=== PATIENT | female | born 1965 | race Caucasian/White ===

== ENCOUNTER → 2017-03-12 | Outpatient (CLI) | payer BC ==
[~2017-03-12] MED LIST: LORA10CA2 PO; MEDR10TA9 PO; NYSTCRE32 TOP; OMEP20CA9 PO; ZOLP5TAB PO
--- NOTE | 2017-03-13 08:09 | MAMMOGRAPHY REPORT ---
BILATERAL DIGITAL SCREENING MAMMOGRAM TOMOSYNTHESIS WITH CAD: 03/12/2017 CLINICAL HISTORY: Routine screening. Patient has no complaints. TECHNIQUE: Breast tomosynthesis in addition to standard 2D mammography was performed. Current study was also evaluated with a Computer Aided Detection (CAD) system. COMPARISON: Comparison is made to exams dated: 01/08/2016 mammogram, 01/03/2015 mammogram, 05/18/2013 m ammogram, 05/05/2012 mammogram, 04/30/2011 mammogram - [facility], and 12/15/2007. BREAST COMPOSITION: There are scattered areas of fibroglandular density in both breasts. FINDINGS: No suspicious masses, calcifications, or areas of architectural distortion are noted in ei ther breast. There has been no significant interval change compared to prior exams. IMPRESSION: ACR BI-RADS CATEGORY 1: NEGATIVE There is no mammographic evidence of malignancy. A 1 year screening mammogram is recommended. The pa tient will receive written notification of the results. Approximately 10% of breast cancers are not detected with mammography. A negative mammographic report should not delay biopsy if a clinically suggestive mass is present. Dominique Ch M.D. /:03/12/2017 15:55:46 Tapper Shank: Krista VAZQUEZ(Ovi)(M), [facility] letter sent: Normal 1/2 BI-RADS Code: ACR BI-RADS Category 1: Negative
== END | disposition home or self-care (01) ==
LOC: C.MAMM 13:09
PROVIDERS: ATTEND Obstetrics & Gynecology
DX: Z12.31 Encounter for screening mammogram for malignant neoplasm of breast (principal)

== ENCOUNTER → 2017-04-10 | Outpatient (CLI) | payer BC | END | disposition home or self-care (01) | LOC: C.PAPS 11:01 | PROVIDERS: ATTEND Obstetrics & Gynecology | DX: Z01.419 Encounter for gynecological examination (general) (routine) without abnormal findings (principal) ==

== ENCOUNTER → 2017-11-16 | Outpatient (CLI) | payer OTHER ==
--- NOTE | 2017-11-16 12:23 | DIAGNOSTIC IMAGING REPORT ---
LEFT HAND 3 VIEWS, LEFT WRIST 4 VIEWS HISTORY: Left hand pain. Left wrist pain. COMPARISON: None. FINDINGS: There is no fracture or dislocation. Soft tissues are unremarkable. No radiopaque foreign bodies. Mild cartilage space narrowing within the first carpometacarpal joint, MCP, and PIP joints. Exoj-is-[id number]: Within the DIP joints. Findings are consistent with osteoarthritis. Bone mineralization is intact. No erosions identified. IMPRESSION: 1. Mild to moderate osteoarthritis within the left hand as described above. 2. No significant abnormality within the left wrist. Electronically signed by: Edmund Oliva M.D. 11/16/2017 12:22 PM Dictated Date/Time: 11/16/2017 12:19 PM
--- NOTE | 2017-11-16 12:24 | DIAGNOSTIC IMAGING REPORT ---
HAND MIN 3 VIEWS ROUTINE CLINICAL HISTORY: Left wrist pain COMPARISON: None. DISCUSSION: No fractures or dislocations are visualized. There is no erosive disease. IMPRESSION: 1. No fractures identified. 2. No evidence of erosive disease. Electronically signed by: Jatin Guerra M.D. 11/16/2017 12:23 PM Dictated Date/Time: 11/16/2017 12:22 PM
== END | disposition home or self-care (01) ==
LOC: C.RAD1850 11:34
PROVIDERS: ATTEND Internal Medicine
DX: M25.532 Pain in left wrist (principal)

== ENCOUNTER → 2017-12-23 | Outpatient (CLI) | payer OTHER | END | disposition home or self-care (01) | LOC: C.RDSM 16:42 | PROVIDERS: ATTEND Podiatrist | DX: M72.2 Plantar fascial fibromatosis (principal); Q66.7 Congenital pes cavus; M76.60 Achilles tendinitis, unspecified leg; M20.41 Other hammer toe(s) (acquired), right foot; M19.90 Unspecified osteoarthritis, unspecified site; M79.671 Pain in right foot; M79.672 Pain in left foot ==

== ENCOUNTER → 2018-03-15 | Outpatient (CLI) | payer OTHER ==
--- NOTE | 2018-03-16 15:23 | MAMMOGRAPHY REPORT ---
BILATERAL DIGITAL SCREENING MAMMOGRAM TOMOSYNTHESIS WITH CAD: 03/15/2018 CLINICAL HISTORY: Routine screening. Patient has no complaints. TECHNIQUE: The study was acquired using full field digital technology and interpreted from soft copy. Breast tomosynthesis in addition to standard 2D mammography was performed. Current study was also ev aluated with a Computer Aided Detection (CAD) system. COMPARISON: Comparison is made to exams dated: 03/12/2017 mammogram, 01/08/2016 mammogram, 01/03/2015 m ammogram, 05/18/2013 mammogram, 05/05/2012 mammogram, and 04/30/2011 mammogram - [facility]. BREAST COMPOSITION: There are scattered areas of fibroglandular density in both breasts. FINDINGS: Status post bilateral reduction mammoplasty, with stable asymmetries in the inferior aspect of each breast. Scattered benign-appearing punctate microcalcifications. No suspicious mass, valeria ectural distortion or cluster of microcalcifications is seen. IMPRESSION: ACR BI-RADS CATEGORY 1: NEGATIVE There is no mammographic evidence of malignancy. A 1 year screening mammogram is recommended.( 019) The patient will receive written notification of the results. Some breast cancers are not detected with mammography. A negative mammographic report should not melyssa y biopsy if a clinically suggestive mass is present. Rosemary Bai M.D. ay/:03/15/2018 16:43:40 Academic Affairs Coordinator: Britany Walsh, [facility] letter sent: Normal 1/2 BI-RADS Code: ACR BI-RADS Category 1: Negative
== END | disposition home or self-care (01) ==
LOC: C.MAMM 13:22
PROVIDERS: ATTEND Obstetrics & Gynecology
DX: Z12.31 Encounter for screening mammogram for malignant neoplasm of breast (principal)

== ENCOUNTER 2024-09-24 22:59 | Inpatient (IN) ==
--- OUTSIDE RECORDS SUMMARY | 2024-09-24 23:04 | External Medical Summary | Continuity of Care Document ---
Author Name Unknown Organization [id number] Address [address] [place] [phone] Care Team Providers Care Manufacturing Sales Representative Name Role Phone Lukasz Morrow Primary Care Physician [phone] Encounter [facility] [id number] Date(s): 08/02/24 - 08/02/[address] [facility] [address] [place] [id number] [facility] [address] [place] [id number] Encounter Diagnosis Hallux rigidus, bilateral(Discharge Diagnosis) - 08/02/24 Hallux rigidus, right foot(Discharge Diagnosis) - 08/02/24 Pain in both feet(Discharge Diagnosis) - 08/02/24 Discharge Disposition: Home or Self Care Attending Physician: KULWANT Rome Christina L Allergies, Adverse Reactions, Alerts Substance Criticality Severity Reaction Reaction Severity Status Pet dander Itching Active Latex Rash Rash Active Assessment and Plan Extracted from: Title:Follow Up Visit Author:KULWANT Rome, Nestor Hernandez Date:08/02/24 1.Hallux rigidus, bilateral I discussed with patient should she need an injection in the future she may contact our office otherwise she should continue supportive shoe gearshe notes that [facility] [place] [facility] [place] multiple pairs of shoes that fit appropriatelyshe may follow-up with me on an as-needed basis. Additionally she had a long discussion with me concerning her ankle I did redirect her questions back to hersurgeon as I feel they would be more appropriately answered there but I did inform her again that she is able toreturn to [place] and have an ultrasound-guided ankle injection by sports medicine. Recommend follow-up as needed I spent 5 minute planning including prepping note and chart review. I spent 12 minute [id number] interaction with patient addressing issuesdiscussed in visit today. I spent 8 minute time in postop visitplanning including note finishing in depart process. Total time spent on patient visit 25 minutes. 2.Hallux rigidus, right foot 3.Pain in both feet Medications albuterol CFC free 90 mcg/inh MDI Start: 09/25/21 3:33:00 PM EST, 1 puff, inhaled, qid, PRN: as needed for wheezing Start Date: 09/25/21 Status: Ordered biotin Start: 07/23/23 8:57:00 AM EST, 10,000 mcg = Start Date: 07/23/23 Status: Ordered Breo Ellipta 100 mcg-25 mcg/inh inhalation powder Start: 07/06/18 9:38:00 AM EST, 1 puff, inhaled, Daily Start Date: 07/06/18 Status: Ordered Combivent Respimat CFC free 20 mcg-100 mcg/inh inhalation aerosol Start: 07/06/18 9:39:00 AM EST, 1 puff, inhaled, qid Start Date: 07/06/18 Status: Ordered D3-50 (50,000 intl units) oral capsule TAKE 1 CAPUSLE ONCE A WEEK FOR 12 WEEKS Start Date: 09/25/21 Status: Ordered estradiol 0.1 mg/g vaginal cream APPLY 1 GRAM VAGINALLY 2 TIMES A WEEK Start Date: 12/12/22 Status: Ordered gabapentin 300 mg oral capsule Start: 01/09/23 12:27:00 PM EDT, 1 cap, PO, tid, Disp# 90 cap, Refills: 3, Pharmacy: [facility] Start Date: 01/09/23 Status: Ordered hydroquinone 4% topical cream Start: 01/29/23 9:25:00 AM EDT, 1 appl, topical, Daily, Disp# 28.4 g, To dark areas on abdomen nightly for up to 2 months Start Date: 01/29/23 Status: Ordered Keflex 500 mg oral capsule Start: 11/10/23 12:29:00 PM EDT, 1 cap, PO, tid, Disp# 21 cap, Pharmacy: [facility] Start Date: 11/10/23 Stop Date: 11/17/23 Status: Ordered Lovenox 40 mg/0.4 mL injectable solution Start: 11/10/23 12:28:00 PM EDT, 0.4 mL, subQ, Daily, Disp# 8.4 mL, Pharmacy: [facility] Start Date: 11/10/23 Stop Date: 12/01/23 Status: Ordered Multi Vitamin+ Start: 07/23/23 8:57:00 AM EST Start Date: 07/23/23 Status: Ordered oxyCODONE 5 mg oral tablet Start: 11/10/23 12:28:00 PM EDT, 1 tab, PO, q6h, Disp# 21 tab, Refills: 0, PRN: as needed for pain, Pharmacy: [facility] Start Date: 11/10/23 Status: Ordered Spiriva Respimat 1.25 mcg/inh inhalation aerosol INHALE 2 PUFFS BY MOUTH ONCE DAILY Start Date: 12/12/22 Status: Ordered Voltaren 1% topical gel Start: 05/18/19 4:31:00 PM EDT, 2 g =, topical, qid, Disp# 100 g, Refills: 1, PRN: Pain, Pharmacy: [facility] Start Date: 05/18/19 Status: Ordered Mental Status 08/02/24 Barriers to Learning one year Vision imp airment, Other: glasses Mandatory Health Literacy Documentation Yes Health Literacy Communication Barriers N ever Primary Language B[place] Problem List Condition Confirmation Course Effective Dates Status Health Status Informant Androgenetic alopecia Confirmed Active Arthritis of carpometacarpal (CMC) joint of left thumb Confirmed Active Alopecia Confirmed Active Nevus of upper arm Confirmed Active Biceps tendinosis of right shoulder Confirmed Active Cubital tunnel syndrome, bilateral Confirmed Active Biceps tendinopathy Confirmed Active Eczema Confirmed Active Folliculitis Confirmed Active Orthopedic aftercare Confirmed Active Right foot pain Confirmed Active Pain in both feet Confirmed Active Left hand pain Confirmed Active Pain, hip Confirmed Active Asthma Confirmed Active Hypertrophic scar Confirmed Active Inflamed seborrheic keratosis Confirmed Active Left knee pain Confirmed Active Right knee pain Confirmed Active Lateral epicondylitis Confirmed Active Lower limb length difference Confirmed Active Nevus Confirmed Active Milia Confirmed Active Postinflammatory hyperpigmentation Confirmed Active Seborrheic keratoses Confirmed Active Right shoulder pain Confirmed Active Left shoulder pain Confirmed Active Skin lesion Confirmed Active Right foot sprain Confirmed Active Posterior tibial tendinitis Confirmed Active Hallux rigidus, right foot Confirmed Active Hallux rigidus, bilateral Confirmed Active Trochanteric bursitis of right hip Confirmed Active Diagnosis Diagnosis Type Effective Dates Health Status inical Service Informant Pain in both feet Discharge Diagnosis 08/02/24 Non-Specified Hallux rigidus, bilateral Discharge Diagnosis 08/02/24 Non-Specified Hallux rigidus, right foot Discharge Diagnosis 08/02/24 Non-Specified Procedures Procedure Date Related Diagnosis Body Site Status Surgery 1 07/2022 Completed Gastric bypass 02/2022 Completed Shave biopsy and cauterization of skin 07/30/17 Completed Breast reduction 2012 Complete d 1right ankle fracture repair Social History Social History Type Response Smoking Status Never smoked cigaret [place] Sex Female Sex Representation Female (finding) Ortho Outpt Note * KULWANT Rome, Beverly Hernandez: PERFORM Event Display: Ortho Outpt Note Authored Date: [id number] Chief Complaint right foot injection follow-up, pt states it worked very well Primary Care Provider MD Morrow Jeffrey W Subjective Patient is a very pleasant 58-year-old femalelast seen in April of this yearshe has a history of bilateral foot pain worse on right versus left footand a history of hallux rigidus. -Patient April visit x-rays were obtained we discussed her diagnosis of hallux rigidusI recommended and provided a right foot first MPJ injectionI recommended topical Voltaren Harrison recommended she use her custom orthotics with her Lopez's extension she follows up today. -With respect to the right foot hallux rigidus patient has done extremely wellshe has no further tenderness in the right foot -She had several questions regarding her right ankle surgeryshe wanted to know if she could have an injection I did redirect her [facility] in her care I do feelthat she shouldhave an appointment if she has any further questions with regards to this issueI did inform her that if she does ever require an ultrasound-guided injection for her anklewe certainly do provide them by her sports medicine doctors locally in [place] if recommended by her surgeon Review of Systems Joint swelling and arthritis Objective Physical Exam Problem focused bilateral feet: Dorsalis pedis pulse palpable 2 out of 4, posterior tibial pulse palpable 2 out of 4, capillary refill timeless than 3 seconds, skin turgor is good to all digitsof both feet pedal hair is present. Gross sensation intact all digits ofboth feet. Right foot grade 2 hallux rigidus with dorsal exostosis withouterythema no swellingpain improved from injectionstill limitation of dorsiflexion notable but without pain. Left foot grade 1 hallux rigiduswithout discomfort. X-ray dictation 3 views bilateral feet:Taken at May 03 visit Assessment/Plan 1.Hallux rigidus, bilateral I discussed with patient should she need an injection in the future she may contact our office otherwise she should continue supportive shoe gearshe notes that [place] [employer] [place] multiple pairs of shoes that fit appropriatelyshe may follow-up with me on an as-needed basis. Additionally she had a long discussion with me concerning her ankle I did redirect her questions back to hersurgeon as I feel they would be more appropriately answered there but I did inform her again that she is able toreturn to [place] and have an ultrasound-guided ankle injection by [facility]. Recommend follow-up as needed I spent 5 minute planning including prepping note and chart review. I spent 12 [id number] interaction with patient addressing issuesdiscussed in visit today. I spent 8 minute time in postop visitplanning including note finishing in depart process. Total time spent on patient visit 25 minutes. 2.Hallux rigidus, right foot 3.Pain in both feet Electronic Signature on File Electronically Reviewed/Signed by: Beverly Rome DPM Author Signature Dt/Tm:08/02/2024 08:50 AM Division of Sports Medicine CLR Patient Care team information Care Team Personnel Name: MD Morrow Jeffrey W Position: Referring DIRECT Member Role: Primary Care Provider Address: [facility] [place] [address] [place] Care Team Related Persons Name: AARON SANTOS
--- OUTSIDE RECORDS SUMMARY | 2024-09-24 23:04 | External Medical Summary | Continuity of Care Document ---
Author Name Unknown Organization [facility] [address] [facility] [address] [id number] Care Team Providers Care Heavy Truck Driver Name Role Phone Lukasz Morrow Primary Care Physician [phone] [id number] Date(s): 08/08/24 - 08/08/24 [facility] [address] [id number] Encounter Diagnosis Androgenetic alopecia(Discharge Diagnosis) - 08/07/24 Milia(Discharge Diagnosis) - 08/08/24 Discharge Disposition: Home or Self Care Attending Physician: DIVYA Palomino Holly C Referring Physician: DIVYA Palomino Holly C Allergies, Adverse Reactions, Alerts Substance Criticality Severity Reaction Reaction Severity Status Pet dander Itching Active Latex Rash Rash Active Assessment and Plan Extracted from: Title:Dermatology Office Visit Note Author:DIVYA Palomino Holly C Date:08/08/24 1.Androgenetic alopecia Chronic continue to get worse. Offered prescription Propecia, she declines, she does not want to do anyoral medication. Advised [id number] Rogaine foam,she statesshe will do it, but it is difficult to do it every dayso notsure how compliant she will be. She asks if she is a candidate for hair transplant, I discussed I am not sure she would have to discuss thatwith someone who does the transplants. She asked about the texture of her hair, I advised to see a beauticianor hairdresser for that. She states understanding. She has a lot of stress right nowas she has hadankle surgery11/10/2023,therefore I did discuss some of this could be telogen effluvium. She had gastric bypass 2 years ago, I asked aboutlabs she states her PCPjust did labs includingthyroid, CBC and they were normal through [facility]. She gets B12 injectionsas directed every few months. She takes vitamin Dsupplements every day. I looked for labs in chart, none found. 2.Milia Chronic no change Provided reassurance aboutthe benign nature of this lesion. No indication for treatment today. declines treatment at this time as cosmetic fee would be whiteside pay charge. Advised patient to call with any problems, questions, or concerns. States understanding. Patient was seen independently,Dr Canoavailable for immediate collaboration as needed during this visit. Will follow up in as needed. Medications albuterol CFC free 90 mcg/inh MDI [...] tid, Disp# 90 cap, Refills: 3, Pharmacy: [facility] [id number] [facility] Start Date: 01/09/23 Status: Ordered hydroquinone 4% topical cream Start: 01/29/23 9:25:00 AM EDT, 1 appl, topical, Daily, Disp# 28.4 g, To dark areas on abdomen nightly for up to 2 months Start Date: 01/29/23 Status: Ordered Keflex 500 mg oral capsule Start: 11/10/23 12:29:00 PM EDT, 1 cap, PO, tid, Disp# 21 cap, Pharmacy: [facility] [id number] [facility] Start Date: 11/10/23 Stop Date: 11/17/23 Status: Ordered Lovenox 40 mg/0.4 mL injectable solution Start: 11/10/23 12:28:00 PM EDT, 0.4 mL, subQ, Daily, Disp# 8.4 mL, Pharmacy: [facility] [id number] [facility] Start Date: 11/10/23 Stop Date: 12/01/23 Status: Ordered Multi Vitamin+ Start: 07/23/23 8:57:00 AM EST Start Date: 07/23/23 Status: Ordered oxyCODONE 5 mg oral tablet Start: 11/10/23 12:28:00 PM EDT, 1 tab, PO, q6h, Disp# 21 tab, Refills: 0, PRN: as needed for pain, Pharmacy: [facility] [id number] [facility] Start Date: 11/10/23 Status: Ordered Spiriva Respimat 1.25 mcg/inh inhalation aerosol INHALE 2 PUFFS BY MOUTH ONCE DAILY Start Date: 12/12/22 Status: Ordered Voltaren 1% topical gel Start: 05/18/19 4:31:00 PM EDT, 2 g =, topical, qid, Disp# 100 g, Refills: 1, PRN: Pain, Pharmacy: [facility] [id number] [facility] Start Date: 05/18/19 Status: Ordered Mental Status 08/08/24 Barriers to Learning one year Vision imp airment, Other: glasses Mandatory Health Literacy Documentation Yes Health Literacy Communication Barriers N ever Primary Language Azeri Problem List Condition Confirmation Course Effective Dates [...] Diagnosis Diagnosis Type Effective Dates Health Status Clinical Service Informant Androgenetic alopecia Discharge Diagnosis 08/07/24 Non-Specified Milia Discharge Diagnosis 08/08/24 Non-Specified Procedures Procedure Date Related Diagnosis Body Site Status Surgery 1 11/2023 Completed Surgery 2 07/2022 Completed Gastric bypass 02/2022 Completed Shave biopsy and cauterization of skin 07/30/17 Completed Breast reduction 2012 Complete d 1hardware 2right ankle fracture repair Social History Social History Type Response Smoking Status Never smoked cigaret [place] Sex Female Sex Representation Female (finding) Dermatology Outpatient Note * DIVYA Palomino, Flor Sigala: PERFORM Event Display: Dermatology Outpt Note Authored Date: [id number] Chief Complaint discuss hair loss History of Present Illness Patient is new to me. 58 YearsoldFemalepatient here for acute visit. Patient reports area of concern today: -hair loss, worse for years, but even worse since her gastric bypass 2 years ago.She asks what all she can do, she puts masks on her hair and could not leave in conditioner. She has tried Nutrafoland Viviscaland Nioxinand in the past. -white bump mid forehead. Denies history of skin cancer. No other skin areas of concern. Otherwise healthy. Saw Dr Thrasher 01/29/[address] Thrasher 01/30/2020 history of androgenetic alopecia. We had tried spironolactone but after taking the medication for1 to 2 days she noticed some side effects and "not feeling well". She saw her primary doctor at the time and stopped the medication and felt fine. She has continued to use the Rogaine foam 5%. She feels that her hair loss is stable and she is not continuing to lose hairalthough she has not grown a lot. Saw Dr Thrasher07/06/2018 history of eczema on her hands. She used Elocon last year to good effect. 1.Androgenetic alopecia in scalp. The patient has tried Nioxin and Rogaine and noticed no success. She would like to try something systemic. We discussed risks and benefits of spironolactone versus Propecia and she elected to try some spironolactone. We will try 50 a day for a month andthen 50 twice a day. We will have her come back in 3 months to reassess. We will put the photosin her chart today. Discussed dizziness, h/a , she should not get , inc potassium and lupuslike drug reaction. 2.Inflamed seborrheic keratoses and tags. Areas frozen with liquid nitrogen. Also some of the tags were snip removed and disposed off with patient's request. 3.Nevi, within normal limits. 4.Occasional folliculitis. Continue clindamycin gel b.i.d. p.r.n. It is pretty quiet right now. 5.Eczema. For the eyelid, I have recommend Cortaid 10 twice a day for up to 2 weeks. Otherwise, if the hand eczema returns, she can call for refill of her Elocon. Followup will be as needed. [3 Physical Exam Well developed, well nourished. WhiteFemaleinno acute distress. normal mood and affect. alert and oriented x 3.Focused skin exam was performed todayof theFace, scalp, ears. -thinning hair consistent female pattern hair loss.There is increased part width of thefrontal scalp compared with theocciput. No evidence of scarring or perifollicular erythema -small white papules consistent with milia Nolesions suspicious for skin cancer. No unusual features on dermoscopy. Further exam was declined.Patient denies any other lesions of concern. Assessment/Plan 1.Androgenetic alopecia Chronic continue to get worse. Offered prescription Propecia, she declines, she does not want to do anyoral medication. Advised [id number] Rogaine foam,she statesshe will do it, but it is difficult to do it every dayso notsure how compliant she will be. She asks if she is a candidate for hair transplant, I discussed I am not sure she would have to discuss thatwith someone who does the transplants. She asked about the texture of her hair, I advised to see a beauticianor hairdresser for that. She states understanding. She has a lot of stress right nowas she has hadankle surgery11/10/2023,therefore I did discuss some of this could be telogen effluvium. She had gastric bypass 2 years ago, I asked aboutlabs she states her PCPjust did labs includingthyroid, CBC and they were normal through [facility]. She gets B12 injectionsas directed every few months. She takes vitamin Dsupplements every day. I looked for labs in chart, none found. 2.Milia Chronic no change Provided reassurance aboutthe benign nature of this lesion. No indication for treatment today. declines treatment at this time as cosmetic fee would be whiteside pay charge. Advised patient to call with any problems, questions, or concerns. States understanding. Patient was seenindependently,Dr Canoavailable for immediate collaboration as needed during this visit. Will follow up inas needed. Problem List/Past Medical History Ongoing Alopecia Androgenetic alopecia Arthritis of carpometacarpal (CMC) joint of left thumb Asthma Biceps tendinopathy Biceps tendinosis of right shoulder Cubital tunnel syndrome, bilateral Eczema Folliculitis Hallux rigidus, bilateral Hallux rigidus, right foot Hypertrophic scar Inflamed seborrheic keratosis Lateral epicondylitis Left hand pain Left knee pain Left shoulder pain Lower limb length difference Milia Nevus Nevus of upper arm Orthopedic aftercare Pain in both feet Pain, hip Posterior tibial tendinitis Postinflammatory hyperpigmentation Right foot pain Right foot sprain Right knee pain Right shoulder pain Seborrheic keratoses Skin lesion Trochanteric bursitis of right hip Procedure/Surgical History Surgery| Service Date: 11/2023Surgery| Service Date: 07/2022Gastric bypass| Service Date: have biopsy and cauterization of skin| Service Date: 07/30/2017Breast reduction| Service Date: 2011 Medications albuterol(albuterol CFC free 90 mcg/inh MDI), 1 puff, inhaled, qid, PRN albuterol-ipratropium(Combivent Respimat CFC free 20 mcg-100 mcg/inh inhalation aerosol), 1 puff, inhaled, qid biotin, 25042 mcg cephalexin(Keflex 500 mg oral capsule), 500 mg= 1 cap, PO, tid cholecalciferol(D3-50 (50,000 intl units) oral capsule) diclofenac topical(Voltaren 1% topical gel), 2 g, topical, qid, PRN, 1 refills enoxaparin(Lovenox 40 mg/0.4 mL injectable solution), 40 mg= 0.4 mL, subQ, Daily estradiol topical(estradiol 0.1 mg/g vaginal cream) fluticasone-vilanterol(Breo Ellipta 100 mcg-25 mcg/inh inhalation powder), 1 puff, inhaled, Daily gabapentin(gabapentin 300 mg oral capsule), 300 mg= 1 cap, PO, tid, 3 refills hydroquinone topical(hydroquinone 4% topical cream), 1 appl, topical, Daily multivitamin(Multi Vitamin+) oxyCODONE(oxyCODONE 5 mg oral tablet), 5 mg= 1 tab, PO, q6h, PRN tiotropium(Spiriva Respimat 1.25 mcg/inh inhalation aerosol) Allergies LatexRash, Rash Pet danderItching Social History Smoking Status Never smoked cigarettes Electronic Signature on File Electronically Reviewed/Signed by: Flor Palomino PA-C Author Signature Dt/Tm:08/08/2024 05:07 PM Department of Dermatology Electronically Reviewed/Signed by: Jorge Cano MD Cosigner Signature Dt/Tm: 08/09/2024 01:00 PM Department of Dermatology [facility] Patient Care team information Care Team Personnel Name: MD Morrow Jeffrey W Position: Referring DIRECT Member Role: Primary Care Provider Address: [facility] [address] [place] [address] Care Team Related Persons Name: AARON SANTOS
--- NOTE | 2024-09-24 23:22 | Emergency Department Note ---
Impression & Plan Acute cholecystitis, Chest pain, Acute upper back pain ED Provider Note Name: DOV PERDUE Age: 59 Sex: Female Arrives Via: Walk-In Informant: Patient, ED Provider: Luis Alberto Eaton MD Chief Complaint: Epigastric/back pain Impression: As per impressions above Medical Decision Makin-year-old female arrives in severe distress complaining of epigastric pain tearing through her chest into her upper back. Patient is diaphoretic dry heaving on arrival. She has significant abdominal tenderness palpation on arrival as well. Given initial findings a CT angiography of the chest and pelvis was ordered. She had an IV, labs, fluids and pain medications given. Did improve with pain meds. CT angiography obtained. By my wet read there was no evidence of dissection nor obstruction. Unfortunately took many hours for radiologist to actually read the imaging. Throughout this time patient received multiple rounds of IV pain medications. She was given fluids. Vitals remained stable throughout after initially being quite hypertensive though improving post pain control. Laboratory workup does show mild LFT elevation but no elevation of bilirubin. White count is not elevated. She is afebrile. She is not septic at this time. There is no clear indication for obtaining blood cultures or lactic acid at this point. After quite some time CT was eventually read. Fortunately no evidence of dissection or other acute finding in the chest per radiologist. The CT of the abdomen is concerning for acute cholecystitis. Questionable biliary duct dilatation but bilirubin is normal. Given how long it has been since she first arrived I did order repeat labs after talking it over with general surgery ADRYAN. I also talked it over with the hospitalist. Plan will be to hospitalize and further workup for acute cholecystitis. Troponin returned slightly elevated from 14-17. No further chest pain no. LFTs did return somewhat more elevated however there is no bilirubin elevation at this point. At time of hospitalization I do not feel patient meets sepsis criteria. She does not have severe sepsis or septic shock. Triage/Nursing Notes reviewed by Me External Chart Review by me: Reviewed PCP note from 07/06/2024 discussing patient's past medical history Differential:ACS, PE, dissection, pneumothorax, pneumonia, cholecystitis, pancreatitis, biliary obstruction, biliary pathology otherwise, peptic ulcer disease, obstruction, ischemia, many other pathologies considered Vital Signs: reviewed and remarkable for hypertension Interventions: Normal saline bolus IV, Dilaudid IV x 3, Zofran IV, Mefoxin 2 g IV Labs:ED labs Reviewed by me and remarkable for mildly elevated LFTs. Normal bilirubin, normal Imagin view chest x-ray as per my interpretation there is no pneumothorax, wide mediastinum or infiltrate appreciated. CT angiography of the chest with and without contrast as per my informal interpretation. There is no evidence of dissection, pericardial effusion, pneumonia, effusion. CT angiography of the abdomen pelvis with and without contrast as per my informal interpretation. Enlarged edematous gallbladder with some pericholecystic fluid. Mild CBD dilatation. No free air. No abscess. No peripancreatic stranding. No obstruction appreciated. EKG:As per my interpretation. Indication epigastric and chest pain. Sinus rhythm at 69 bpm with a sinus arrhythmia. QTc is 424. There is no ectopy nor ischemia. When compared to May 16, 2021 EKG there is no significant change other than rate Cardiac/Tele Monitoring: Cardiac Monitoring: An Order was placed for continuous cardiac monitoring. The monitor shows a rate of 60 with a normal sinus rhythm. Consults:Discussed with general surgery ADRYAN who will come evaluate patient. They suggested repeat LFTs and may get ultrasound. Discussed with hospitalist who will further evaluate and manage patient Plan: Disposition:Hospitalization. Condition: Good History of Present Illness: 59-year-old female arrives for evaluation of severe epigastric pain. Pain started around 4 PM. Since then pain has traveled up her chest and radiates to her back. Notes bilateral upper mid back pain. Tearing in nature. Patient states severely sharp. Associated with nausea and dry heaves. Vomiting foam. Notes some lower abdominal discomfort as well but not nearly as bad as upper area. Denies any syncope. Denies any difficulty breathing. notes patient is pale and sweating. No medication prior to arrival. No history of similar. Past Medical History: History of gastric bypass, GERD, asthma amongst other Home Medications:See Below Allergies: Dander, dust, latex Vitals:Blood Pressure: 215/93, Pulse 92, RR 26, T 36.8C, O2 100% on RA Physical Exam: GENERAL: Patient is unwell appearing and in severe distress. Sitting up in bed dry heaving, diaphoretic, pale, unable to stay still RESPIRATORY: No dyspnea. Clear to auscultation and equal bilaterally. CARDIOVASCULAR: Regular rate and rhythm.No murmur appreciated. GASTROINTESTINAL: Nonspecific severe upper abdominal tenderness palpation. BACK: No midline tenderness, no CVA tenderness EXTREMITIES: Strong pulses bilateral lower legs. Normal motion all extremities, no cyanosis, no edema. NEUROLOGIC: Alert and oriented. No focal neurologic deficits appreciated SKIN: No rash, no jaundice, no diaphoresis. PSYCH: Appropriate GCS: 15 ED Course: Times/Reassessments: Patient significantly improved with IV pain medications. Agreeable to hospitalization. Luis Alberto Eaton MD Past Med/Surg History Problem List (Updated 09/25/24 @ 06:57 by Luis Alberto Eaton MD) Acute upper back pain (Acute) Chest pain (Acute) Acute cholecystitis (Acute) Acute calculous cholecystitis History of colon polyps Hair changes Cervical radiculopathy History of ankle fracture (10/30/21) right ankle Vitamin B12 deficiency Myofascial pain Thoracic back pain Tarsal tunnel syndrome, right lower limb Maxillary sinus cyst Hypertrophy of both inferior nasal turbinates Chronic rhinitis History of gastric bypass 03/06/22 Cervical radiculopathy at Vitamin D deficiency Dietary counseling and surveillance Obesity Metabolic syndrome Restrictive lung disease ENMA (obstructive sleep apnea) Left foot pain Hypersomnia Allergic rhinitis with postnasal drip Vaginal dryness Encounter for annual routine gynecological examination Pre-diabetes (Acute) Polycystic ovarian syndrome (Chronic) Insomnia Hyperlipidemia (08/24/12) GERD without esophagitis (Acute) Deviated nasal septum (Acute) Asthma, moderate persistent (Acute) Osteoarthritis Medical History Deviated nasal septum History of anesthesia reaction History of prediabetes History of ankle fracture (2021) Osteoarthritis Neck problem History of COVID-19 Asthma GERD (gastroesophageal reflux disease) Surgical History History of colonoscopy History of gastric bypass (2021) History of ankle surgery Nausea and vomiting after administration of anesthetic agent History of esophagogastroduodenoscopy (EGD) H/O bilateral breast reduction surgery Family History Mother Brain tumor Pure hypercholesterolemia Hypertension Family history of reaction to anesthesia Father Diabetes Family history of diabetes mellitus Hypertension Stroke Grandmother Diabetes Brother Environmental allergies Allergic rhinitis Hypertension Asthma Sister Hypertension Aunt Breast cancer Other No family history of bleeding disorder Denies family history of Ovarian cancer Prostate cancer Myocardial infarction Colorectal cancer Social History Smoking Status: Never smoker Second Hand Exposure: No; Do You Dip or Chew Tobacco: No; Hx Substance Use: No Preferred Language: Bolivian Communication Ability: Effective Visual Impairment: No Limitations Hearing Ability: Normal Painting Trades Worker Required: No Beliefs That Will Affect Care: None marital status: Current Living Situation: Spouse current occupational status: employed current occupation: Customer service at [employer] Feels Safe at Home: Yes Childhood Exposure to Second-Hand Smoke: No Diet: regular caffeine: No during the past year weight has: increased > 10 lbs Dental Care, Regularly: Yes Physical Activity Frequency: Does not Exercise Seatbelt Use: always Sunscreen Use: Yes Assistive Devices: CPAP and Glasses Allergies Allergies Allergy/AdvReac Type Severity Reaction Status Date / Time cat dander Allergy Unknown Itchy Verified 07/06/24 13:26 house dust Allergy Unknown Itchy Verified 07/06/24 13:26 latex Allergy Unknown itchy rash Verified 07/06/24 13:26 Home Meds Home Medications Medication Instructions Recorded Confirmed ipratropium 20 mcg-albuterol 100 1 puff inhalation UD PRN asthma 07/01/22 07/06/24 mcg/actuation mist for inhalation (Combivent Respimat) calcium carbonate (Antacid 200 mg PO BID 08/04/22 07/06/24 (calcium carbonate)) cholecalciferol (vitamin D3) 50 50 mcg PO DAILY 08/04/22 07/06/24 mcg (2,000 unit) capsule multivitamin (Daily Multi-Vitamin 1 tab PO BID 08/04/22 07/06/24 tablet) biotin 10,000 mcg capsule 10,000 mcg PO HS 07/21/23 07/06/24 acetaminophen 500 mg tablet 1,000 mg PO UD PRN Pain 06/10/24 07/06/24 albuterol sulfate 90 mcg/actuation 2 puff inhalation UD PRN asthma 06/10/24 07/06/24 aerosol inhaler fluticasone furoate 200 1 inh inhalation UD PRN asthma 06/10/24 07/06/24 mcg-vilanterol 25 mcg/dose inhalation powder (Breo Ellipta) lidocaine-prilocaine 2.5 %-2.5 % 2.5 g topical HS 06/10/24 07/06/24 topical cream montelukast 10 mg tablet 10 mg PO UD PRN allergies/asthma 06/10/24 07/06/24 (Singulair) gabapentin 100 mg capsule 200 mg PO DAILY PRN 07/06/24 07/06/24 Previous Rx's Medication Instructions Recorded CPAP Machine #1 ea 01/28/21 CPAP Supplies #1 ea 01/28/21 blood sugar diagnostic #100 ea 09/30/22 tizanidine 4 mg tablet 4 mg PO HS PRN muscle spasticity 03/11/24 #30 tabs blood sugar diagnostic (OneTouch #300 ea 07/08/24 Ultra Test strips) Results & Data (ED) Vital Signs Vital Signs - 24 hr 09/24/24 23:02 09/24/24 23:18 09/24/24 23:28 Pulse Rate 92 H 72 Pulse Rate from SpO2 Sensor Respiratory Rate 26 H Respiratory Depth Deep Respiratory Pattern Tachypnea Blood Pressure 215/93 H Blood Pressure Mean 133 Blood Pressure Position Sitting Pulse Oximetry 100 Oxygen Delivery Method Room Air Room Air Oxygen Flow Rate Sepsis Recent Fever Within 48 Hours No Sepsis New/Unexplained Change in Mental Status N/A Sepsis Action Taken by Nursing No Action Required 09/25/24 00:00 09/25/24 00:00 09/25/24 00:05 Pulse Rate 64 Pulse Rate from SpO2 Sensor Respiratory Rate 20 Respiratory Depth Respiratory Pattern Blood Pressure 134/72 Blood Pressure Mean 87 Blood Pressure Position Pulse Oximetry 88 L 88 L 99 Oxygen Delivery Method Room Air Nasal Cannula Oxygen Flow Rate 2 Sepsis Recent Fever Within 48 Hours Sepsis New/Unexplained Change in Mental Status Sepsis Action Taken by Nursing 09/25/24 01:00 09/25/24 01:30 09/25/24 01:45 Pulse Rate 68 72 64 Pulse Rate from SpO2 Sensor 63 Respiratory Rate 16 24 23 Respiratory Depth Respiratory Pattern Blood Pressure 155/91 H 162/95 H Blood Pressure Mean 110 117 Blood Pressure Position Pulse Oximetry 100 98 98 Oxygen Delivery Method Oxygen Flow Rate Sepsis Recent Fever Within 48 Hours Sepsis New/Unexplained Change in Mental Status Sepsis Action Taken by Nursing 09/25/24 02:15 09/25/24 02:30 09/25/24 02:30 Pulse Rate 87 Pulse Rate from SpO2 Sensor 85 Respiratory Rate 21 Respiratory Depth Respiratory Pattern Blood Pressure 160/94 H 160/94 H Blood Pressure Mean 97 97 Blood Pressure Position Pulse Oximetry 99 Oxygen Delivery Method Oxygen Flow Rate Sepsis Recent Fever Within 48 Hours Sepsis New/Unexplained Change in Mental Status Sepsis Action Taken by Nursing 09/25/24 03:00 09/25/24 03:00 09/25/24 03:18 Pulse Rate 78 71 Pulse Rate from SpO2 Sensor 78 70 Respiratory Rate 18 15 Respiratory Depth Respiratory Pattern Blood Pressure 163/95 H Blood Pressure Mean 117 Blood Pressure Position Pulse Oximetry 98 98 Oxygen Delivery Method Oxygen Flow Rate Sepsis Recent Fever Within 48 Hours Sepsis New/Unexplained Change in Mental Status Sepsis Action Taken by Nursing 09/25/24 03:19 09/25/24 03:24 09/25/24 03:30 Pulse Rate 61 Pulse Rate from SpO2 Sensor Respiratory Rate 19 Respiratory Depth Respiratory Pattern Blood Pressure 154/81 H Blood Pressure Mean 106 Blood Pressure Position Pulse Oximetry 99 Oxygen Delivery Method Oxygen Flow Rate Sepsis Recent Fever Within 48 Hours Sepsis New/Unexplained Change in Mental Status Sepsis Action Taken by Nursing 09/25/24 03:30 09/25/24 03:33 09/25/24 03:45 Pulse Rate 64 64 Pulse Rate from SpO2 Sensor 62 68 Respiratory Rate 13 14 Respiratory Depth Respiratory Pattern Blood Pressure 154/81 H Blood Pressure Mean 106 Blood Pressure Position Pulse Oximetry 99 98 Oxygen Delivery Method Oxygen Flow Rate Sepsis Recent Fever Within 48 Hours Sepsis New/Unexplained Change in Mental Status Sepsis Action Taken by Nursing 09/25/24 04:00 09/25/24 04:00 Pulse Rate 59 L Pulse Rate from SpO2 Sensor 61 Respiratory Rate 17 Respiratory Depth Respiratory Pattern Blood Pressure 144/84 H Blood Pressure Mean 115 Blood Pressure Position Pulse Oximetry 99 Oxygen Delivery Method Oxygen Flow Rate Sepsis Recent Fever Within 48 Hours Sepsis New/Unexplained Change in Mental Status Sepsis Action Taken by Nursing Laboratory Data 09/25/24 05:58 09/24/24 23:15 Lab Results 09/24/24 09/24/24 09/25/24 Range/Units 23:15 23:24 05:58 WBC 8.11 4.87 (4.8-10.8) K/ul RBC 4.66 4.66 (4.20-5.40) M/uL Hgb 14.3 14.3 (12.0-16.0) g/dl POC Hgb 15.0 (12.0-16.0) g/dl Hct 41.5 42.5 (37.0-47.0) % POC Hct 44 (37-47) % MCV 89.1 91.2 (80.0-100.0) fL MCH 30.7 30.7 (25.0-34.0) pg MCHC 34.5 33.6 (32.0-36.0) g/dL RDW Std Deviation 39.8 40.9 (36.4-46.3) fL RDW Coeff of Galo 12.3 12.4 (11.5-14.5) % Plt Count 223 207 (130-400) K/uL MPV 11.0 10.7 (9.4-12.4) fL Immature Gran % (Auto) 0.4 0.2 % Neut % (Auto) 77.1 81.3 % Lymph % (Auto) 18.5 17.9 % Yell % (Auto) 3.7 0.4 % Eos % (Auto) 0.1 0.0 % Baso % (Auto) 0.2 0.2 % Neut # (Auto) 6.25 3.96 (1.40-6.50) K/uL Lymph # (Auto) 1.50 0.87 L (1.20-3.40) K/uL Yell # (Auto) 0.30 0.02 L (0.11-0.59) K/uL Eos # (Auto) 0.01 0.00 (0.00-0.50) K/uL Baso # (Auto) 0.02 0.01 (0.00-0.20) K/uL Immature Gran # (Auto) 0.03 0.01 (0.01-0.20) K/uL PT 10.3 (9.0-12.0) Seconds INR 0.9 (0.9-1.1) POC Sodium 136 (135-144) mmol/L Sodium 134 L (136-145) mmol/L POC Potassium 3.7 (3.3-5.0) mmol/L Potassium 3.7 (3.5-5.1) mmol/L POC Chloride 101 (101-112) mmol/L Chloride 99 (98-107) mmol/L Carbon Dioxide 25 (21-32) mmol/L POC Total CO2 22 L (24-31) mmol/L Anion Gap 10 (3-11) POC Anion Gap 18.0 (16-25) mmol/L POC BUN 13 (7-18) mg/dl BUN 14 (6-23) mg/dl Creatinine 0.62 (0.6-1.2) mg/dl POC Creatinine 0.6 (0.6-1.3) mg/dl Est Cr Clr Drug Dosing Not Reportable eGFR 103.80 BUN/Creatinine Ratio 22.6 H (10-20) Glucose 182 H (70-99(Fasting)) mg/dl POC Glucose (other) 179 H (70-99) mg/dl Lactate (0.4-2.0) mmol/L Calcium 10.0 (8.6-10.3) mg/dl POC Ioniz Calcium Luigi 1.12 (1.12-1.32) mmol/l Total Bilirubin 0.7 0.8 (0.2-1.0) mg/dl Direct Bilirubin 0.2 (0-0.2) mg/dl AST 136 H 1471 H (13-39) U/L ALT 54 H 646 H (7-52) U/L Alkaline Phosphatase 113 H 249 H D (34-104) U/L Troponin I High Sens 13.1 17.6 H D (0-14) pg/ml Total Protein 7.8 7.2 (6.0-8.3) gm/dl Albumin 4.7 4.3 (3.4-5.0) gm/dl Globulin 3.1 (2.5-4.0) gm/dl Albumin/Globulin Ratio 1.5 (0.9-2) Lipase 22 (11-82) U/L 09/25/24 Range/Units 06:09 WBC (4.8-10.8) K/ul RBC (4.20-5.40) M/uL Hgb (12.0-16.0) g/dl POC Hgb (12.0-16.0) g/dl Hct (37.0-47.0) % POC Hct (37-47) % MCV (80.0-100.0) fL MCH (25.0-34.0) pg MCHC (32.0-36.0) g/dL RDW Std Deviation (36.4-46.3) fL RDW Coeff of Galo (11.5-14.5) % Plt Count (130-400) K/uL MPV (9.4-12.4) fL Immature Gran % (Auto) % Neut % (Auto) % Lymph % (Auto) % Yell % (Auto) % Eos % (Auto) % Baso % (Auto) % Neut # (Auto) (1.40-6.50) K/uL Lymph # (Auto) (1.20-3.40) K/uL Yell # (Auto) (0.11-0.59) K/uL Eos # (Auto) (0.00-0.50) K/uL Baso # (Auto) (0.00-0.20) K/uL Immature Gran # (Auto) (0.01-0.20) K/uL PT (9.0-12.0) Seconds INR (0.9-1.1) POC Sodium (135-144) mmol/L Sodium (136-145) mmol/L POC Potassium (3.3-5.0) mmol/L Potassium (3.5-5.1) mmol/L POC Chloride (101-112) mmol/L Chloride (98-107) mmol/L Carbon Dioxide (21-32) mmol/L POC Total CO2 (24-31) mmol/L Anion Gap (3-11) POC Anion Gap (16-25) mmol/L POC BUN (7-18) mg/dl BUN (6-23) mg/dl Creatinine (0.6-1.2) mg/dl POC Creatinine (0.6-1.3) mg/dl Est Cr Clr Drug Dosing eGFR BUN/Creatinine Ratio (10-20) Glucose (70-99(Fasting)) mg/dl POC Glucose (other) (70-99) mg/dl Lactate 3.6 H* (0.4-2.0) mmol/L Calcium (8.6-10.3) mg/dl POC Ioniz Calcium Luigi (1.12-1.32) mmol/l Total Bilirubin (0.2-1.0) mg/dl Direct Bilirubin (0-0.2) mg/dl AST (13-39) U/L ALT (7-52) U/L Alkaline Phosphatase (34-104) U/L Troponin I High Sens (0-14) pg/ml Total Protein (6.0-8.3) gm/dl Albumin (3.4-5.0) gm/dl Globulin (2.5-4.0) gm/dl Albumin/Globulin Ratio (0.9-2) Lipase (11-82) U/L Administered Medications Discontinued Medications Hydromorphone HCl (Hydromorphone Inj 1 Mg/Ml Syringe) 1 mg IV NOW STA Stop: 09/24/24 23:18 Last Admin: 09/24/24 23:24 Dose: 1 mg Documented By: TORSTEN Hydromorphone HCl (Hydromorphone Inj 0.5 Mg/0.5 Ml Syr) 0.5 mg IV NOW STA Stop: 09/25/24 00:58 Last Admin: 09/25/24 01:00 Dose: 0.5 mg Documented By: TORSTEN Sodium Chloride (Nss) 1,000 mls @ 999 mls/hr IV .Q1H1M ONE Stop: 09/25/24 00:17 Last Infusion: 09/25/24 00:25 Dose: Infused Documented By: Admin: 09/24/24 23:24 Dose: 999 mls/hr Documented By: TORSTEN Cefoxitin Sodium (Mefoxin) 2,000 mg in 60 mls @ 100 mls/hr IV NOW STA Stop: 09/25/24 05:19 Last Infusion: 09/25/24 06:04 Dose: Infused Documented By: Admin: 09/25/24 05:16 Dose: 100 mls/hr Documented By: GLENN Ioversol (Optiray 320 125ml) 119 ml IV ONCE ONE Stop: 09/24/24 23:48 Last Admin: 09/24/24 23:48 Dose: 119 ml Documented By: SHERICE Ondansetron HCl (Ondansetron Inj 2 Mg/Ml 2 Ml Vial) 4 mg IV NOW STA Stop: 09/24/24 23:18 Last Admin: 09/24/24 23:24 Dose: 4 mg Documented By: TORSTEN Ondansetron HCl (Ondansetron Inj 2 Mg/Ml 2 Ml Vial) 4 mg IV NOW STA Stop: 09/25/24 06:05 Last Admin: 09/25/24 06:07 Dose: 4 mg Documented By: GLENN Imaging Data Radiologist's Impression: Chest X-Ray 09/24/24 23:06 Exam(s): XR CXR 1 VIEW EXAM: XR Chest, 1 View CLINICAL HISTORY: Reason for exam: Chest pain, nonspecific. TECHNIQUE: Frontal view of the chest. COMPARISON: Chest x-ray from July 29, 2023. FINDINGS: Lungs: Moderate peribronchial thickening of the central and peripheral bronchi with increased interstitial opacities throughout the lungs. Pulmonary vascular congestion. No consolidation. Pleural space: Unremarkable. No pneumothorax. Heart: Mild cardiomegaly. Mediastinum: Unremarkable. Normal mediastinal contour. Bones/joints: Unremarkable. No acute fracture. IMPRESSION: Bronchitis which may be of infectious or inflammatory arteries. No consolidation or pleural effusion. Pulmonary vascular congestion and mild cardiomegaly. Electronically signed by: Latasha Thorpe MD 09/25/24 02:43 AM Abdomen/Pelvis CTA 09/24/24 23:17 Exam(s): CTA ABDOMEN + PELVIS W/WO Contrast EXAM: CT Angiography Abdomen and Pelvis Without and With Intravenous Contrast CLINICAL HISTORY: Reason for exam: tearing epigastric pain through to back. TECHNIQUE: Axial computed tomographic angiography images of the abdomen and pelvis without and with intravenous contrast. CTDI is 78.42 mGy and DLP is 2918. 76 mGy-cm. Automated exposure control was utilized for the study. A dose lowering technique was utilized adhering to the principles of ALARA. MIP reconstructed images were created and reviewed. CONTRAST: Contrast must be dictated COMPARISON: None FINDINGS: VASCULATURE: Aorta: No acute findings. No abdominal aortic aneurysm. No dissection. Celiac trunk and mesenteric arteries: No acute findings. No occlusion or significant stenosis. Renal arteries: No acute findings. No occlusion or significant stenosis. Iliac arteries: No acute findings. No occlusion or significant stenosis. Portal veins: Hypoattenuation in the portal vein may be secondary to phase of contrast-enhancement. Limited evaluation on this exam. Probable nonspecific periportal edema. Lung bases: Please see accompanying CT chest for further details. ABDOMEN: Liver: Hepatomegaly. Gallbladder and bile ducts: Cholelithiasis. Nonspecific mild prominence of the gallbladder wall and pericholecystic edema. Findings may represent acute cholecystitis versus fluid overload. Pancreas: Unremarkable. No ductal dilation. No mass. Spleen: Unremarkable. No splenomegaly. Adrenals: Unremarkable. No mass. Kidneys and ureters: Unremarkable. No hydronephrosis or obstructing ureteral stone. Stomach and bowel: Gastric bypass changes. Evaluation of the stomach is limited by underdistention. No mucosal thickening. No bowel obstruction or inflammation. PELVIS: Appendix: Normal appendix. Bladder: Unremarkable. No stones. No mass. Reproductive: Probable right ovarian cyst which could be further evaluated with ultrasound if clinically indicated. ABDOMEN and PELVIS: Intraperitoneal space: Unremarkable. No significant fluid collection. No free air. Bones/joints: No acute fracture. No dislocation. Soft tissues: Small fat-containing umbilical hernia. Lymph nodes: Unremarkable. No enlarged lymph nodes. IMPRESSION: 1. Cholelithiasis. Nonspecific mild prominence of the gallbladder wall and pericholecystic edema. Findings may represent acute cholecystitis versus fluid overload. 2. Probable right ovarian cyst which could be further evaluated with ultrasound if clinically indicated. 3. Hypoattenuation in the portal vein may be secondary to phase of contrast-enhancement. Limited evaluation on this exam. Probable nonspecific periportal edema. Electronically signed by: Nata Schmidt M.D. 09/25/24 04:38 AM Chest CTA 09/24/24 23:17 Exam(s): CTA CHEST W/WO Contrast EXAM: CT Angiography Chest Without and With Intravenous Contrast CLINICAL HISTORY: Reason for exam: tearing epigastric pain through to back. TECHNIQUE: Axial computed tomographic angiography images of the chest without and with intravenous contrast. CTDI is 78.42 mGy and DLP is 2918.76 mGy-cm. Automated exposure control was utilized for the study. A dose lowering technique was utilized adhering to the principles of ALARA. MIP reconstructed images were created and reviewed. CONTRAST: Contrast must be dictated COMPARISON: None FINDINGS: Pulmonary arteries: Unremarkable. No pulmonary embolus identified. Aorta: No aortic aneurysm or dissection. Aberrant right subclavian artery. Lungs: Nonspecific 4 mm nodule along the posterior medial right lower lobe. Nonspecific 3 mm nodule in the lingula. If patient is at low risk, no further follow-up necessary. If patient is at high risk, consider follow-up CT in 12 months. No focal consolidation. Pleural space: Unremarkable. No significant effusion. No pneumothorax. Heart: Unremarkable. No cardiomegaly. No significant pericardial effusion. No evidence of RV dysfunction. Bones/joints: Degenerative changes of the spine. No acute fracture. No dislocation. Soft tissues: Unremarkable. Lymph nodes: Unremarkable. No enlarged lymph nodes. IMPRESSION: 1. No pulmonary embolus identified. 2. No aortic aneurysm or dissection. Aberrant right subclavian artery. 3. Nonspecific 4 mm nodule along the posterior medial right lower lobe. Nonspecific 3 mm nodule in the lingula. If patient is at low risk, no further follow-up necessary. If patient is at high risk, consider follow- up CT in 12 months. Electronically signed by: Nata Schmidt M.D. 09/25/24 04:33 AM Discharge Plan Visit Data Chief Complaint: Chest Pain Stated Complaint: CHEST PAIN ED Provider: Luis Alberto Eaton Discharge Problem: Acute cholecystitis, Chest pain, Acute upper back pain Forms Stand Alone Forms: [facility] [employer] Prescriptions Prescriptions: No Action (DME) CPAP Supplies Misc See Rx Instructions .MEDSUPPLY Qty: 1 0RF Rx Instructions: CPAP supplies. G47.33 (DME) CPAP Machine Misc See Rx Instructions .MEDSUPPLY Qty: 1 0RF Rx Instructions: CPAP with 11 cm H20 pressure with ResMed medium AirFit F 30 fullface mask. G47.33 (DME) blood sugar diagnostic Strip See Rx Instructions .Route Qty: 100 5RF Rx Instructions: one touch ultra .. As directed tid prn for hyperglycemia tizanidine 4 mg tablet 4 mg PO HS PRN (Reason: muscle spasticity) Qty: 30 1RF (DME) OneTouch Ultra Test Strip See Rx Instructions .Route Qty: 300 1RF Rx Instructions: TEST THREE TIMES DAILY Combivent Respimat 20-100 mcg/actuation mist 1 puff inhalation UD PRN (Reason: asthma) cholecalciferol (vitamin D3) 50 mcg (2,000 unit) capsule 50 mcg PO DAILY calcium carbonate [Antacid (calcium carbonate)] 200 mg calcium (500 mg) tablet,chewable 200 mg PO BID multivitamin [Daily Multi-Vitamin] Tablet 1 tab PO BID biotin 10,000 mcg capsule 10,000 mcg PO HS Prevnar 20 (PF) 0.5 mL syringe 0.5 ml IM ONE Qty: 0.5 0RF gabapentin 100 mg capsule 200 mg PO DAILY PRN acetaminophen 500 mg Tablet 1,000 mg PO UD PRN (Reason: Pain) lidocaine-prilocaine 2.5-2.5 % cream 2.5 g topical HS montelukast [Singulair] 10 mg tablet 10 mg PO UD PRN (Reason: allergies/asthma) albuterol sulfate 90 mcg/actuation HFA aerosol inhaler 2 puff inhalation UD PRN (Reason: asthma) fluticasone furoate-vilanterol [Breo Ellipta] 200-25 mcg/dose blister with device 1 inh inhalation UD PRN (Reason: asthma) Referrals Referrals: Lukasz Morrow MD [Primary Care Provider] - Discharge Problem: Chest pain Qualifiers: Chest pain type: unspecified Qualified Code(s): R07.9 - Chest pain, unspecified
[2024-09-24] MEDS: HYDROmorphone INJ 1 MG/ML SYRINGE IV STA (23:24)
[2024-09-24] MEDS: ONDANSETRON INJ 2 MG/ML 2 ML VIAL IV STA (23:24)
[2024-09-24] MEDS: SODIUM CHLORIDE 0.9% 1,000 ML IV ONE (23:24)
[2024-09-24 23:32] LABS: Basophils # (auto) 0.02 K/uL (0.00-0.20); Basophils % (auto) 0.2 %; Eosinophils # (auto) 0.01 K/uL (0.00-0.50); Eosinophils % (auto) 0.1 %; Hematocrit (blood only) 41.5 % (37.0-47.0); Hemoglobin 14.3 g/dl (12.0-16.0); Immature Granulocytes # (auto) 0.03 K/uL (0.01-0.20); Immature Granulocytes % (auto) 0.4 %; Lymphocytes % (auto) 18.5 %; Mean Corpuscular Hemoglobin 30.7 pg (25.0-34.0); Mean Corpuscular Hgb Conc 34.5 g/dL (32.0-36.0); Mean Corpuscular Volume 89.1 fL (80.0-100.0); Monocytes % (auto) 3.7 %; Neutrophils # (auto) 6.25 K/uL (1.40-6.50); Neutrophils % (auto) 77.1 %; Platelet Count 223 K/uL (130-400); RDW Coefficient of Variation 12.3 % (11.5-14.5); RDW Standard Deviation 39.8 fL (36.4-46.3); Red Blood Count 4.66 M/uL (4.20-5.40); White Blood Count 8.11 K/ul (4.8-10.8)
[2024-09-24 23:36] LABS: iSTAT Creatinine 0.6 mg/dl (0.6-1.3); iSTAT Ionized Calcium 1.12 mmol/l (1.12-1.32); iSTAT Potassium 3.7 mmol/L (3.3-5.0)
[2024-09-24] MEDS: OPTIRAY 320 125ml IV ONE (23:48)
[2024-09-24 23:50] LABS: Alanine Aminotransferase 54 U/L (7-52); Albumin Globulin Ratio 1.5 (0.9-2); Albumin Level 4.7 gm/dl (3.4-5.0); Alkaline Phosphatase 113 U/L (34-104); Anion Gap 10 (3-11); Aspartate Aminotransferase 136 U/L (13-39); BUN Creatinine Ratio 22.6 (10-20); Bilirubin,Total 0.7 mg/dl (0.2-1.0); Blood Urea Nitrogen 14 mg/dl (6-23); Carbon Dioxide 25 mmol/L (21-32); Chloride 99 mmol/L (98-107); Globulin 3.1 gm/dl (2.5-4.0); Glucose 182 mg/dl (70-99(Fasting)); Lipase 22 U/L (11-82); Potassium 3.7 mmol/L (3.5-5.1); Sodium 134 mmol/L (136-145); Total Protein 7.8 gm/dl (6.0-8.3)
[2024-09-24 23:56] LABS: Troponin I High Sensitivity 13.1 pg/ml (0-14)
[2024-09-25 00:07] LABS: INR 0.9 (0.9-1.1); Prothrombin Time 10.3 Seconds (9.0-12.0)
[2024-09-25] MEDS: HYDROmorphone INJ 0.5 MG/0.5 ML SYR IV STA (01:00)
--- NOTE | 2024-09-25 02:44 | XRay Report ---
Exam(s): XR CXR 1 VIEW EXAM: XR Chest, 1 View CLINICAL HISTORY: Reason for exam: Chest pain, nonspecific. TECHNIQUE: Frontal view of the chest. COMPARISON: Chest x-ray from July 29, 2023. FINDINGS: Lungs: Moderate peribronchial thickening of the central and peripheral bronchi with increased interstitial opacities throughout the lungs. Pulmonary vascular congestion. No consolidation. Pleural space: Unremarkable. No pneumothorax. Heart: Mild cardiomegaly. Mediastinum: Unremarkable. Normal mediastinal contour. Bones/joints: Unremarkable. No acute fracture. IMPRESSION: Bronchitis which may be of infectious or inflammatory arteries. No consolidation or pleural effusion. Pulmonary vascular congestion and mild cardiomegaly. Electronically signed by: Latasha Thorpe MD 09/25/24 02:43 AM
--- NOTE | 2024-09-25 04:34 | CT Scan Report ---
Exam(s): CTA CHEST W/WO Contrast EXAM: CT Angiography Chest Without and With Intravenous Contrast CLINICAL HISTORY: Reason for exam: tearing epigastric pain through to back. TECHNIQUE: Axial computed tomographic angiography images of the chest without and with intravenous contrast. CTDI is 78.42 mGy and DLP is 2918.76 mGy-cm. Automated exposure control was utilized for the study. A dose lowering technique was utilized adhering to the principles of ALARA. MIP reconstructed images were created and reviewed. CONTRAST: Contrast must be dictated COMPARISON: None FINDINGS: Pulmonary arteries: Unremarkable. No pulmonary embolus identified. Aorta: No aortic aneurysm or dissection. Aberrant right subclavian artery. Lungs: Nonspecific 4 mm nodule along the posterior medial right lower lobe. Nonspecific 3 mm nodule in the lingula. If patient is at low risk, no further follow-up necessary. If patient is at high risk, consider follow-up CT in 12 months. No focal consolidation. Pleural space: Unremarkable. No significant effusion. No pneumothorax. Heart: Unremarkable. No cardiomegaly. No significant pericardial effusion. No evidence of RV dysfunction. Bones/joints: Degenerative changes of the spine. No acute fracture. No dislocation. Soft tissues: Unremarkable. Lymph nodes: Unremarkable. No enlarged lymph nodes. IMPRESSION: 1. No pulmonary embolus identified. 2. No aortic aneurysm or dissection. Aberrant right subclavian artery. 3. Nonspecific 4 mm nodule along the posterior medial right lower lobe. Nonspecific 3 mm nodule in the lingula. If patient is at low risk, no further follow-up necessary. If patient is at high risk, consider follow- up CT in 12 months. Electronically signed by: Nata Schmidt M.D. 09/25/24 04:33 AM
--- NOTE | 2024-09-25 04:39 | CT Scan Report ---
Exam(s): CTA ABDOMEN + PELVIS W/WO Contrast EXAM: CT Angiography Abdomen and Pelvis Without and With Intravenous Contrast CLINICAL HISTORY: Reason for exam: tearing epigastric pain through to back. TECHNIQUE: Axial computed tomographic angiography images of the abdomen and pelvis without and with intravenous contrast. CTDI is 78.42 mGy and DLP is 2918. 76 mGy-cm. Automated exposure control was utilized for the study. A dose lowering technique was utilized adhering to the principles of ALARA. MIP reconstructed images were created and reviewed. CONTRAST: Contrast must be dictated COMPARISON: None FINDINGS: VASCULATURE: Aorta: No acute findings. No abdominal aortic aneurysm. No dissection. Celiac trunk and mesenteric arteries: No acute findings. No occlusion or significant stenosis. Renal arteries: No acute findings. No occlusion or significant stenosis. Iliac arteries: No acute findings. No occlusion or significant stenosis. Portal veins: Hypoattenuation in the portal vein may be secondary to phase of contrast-enhancement. Limited evaluation on this exam. Probable nonspecific periportal edema. Lung bases: Please see accompanying CT chest for further details. ABDOMEN: Liver: Hepatomegaly. Gallbladder and bile ducts: Cholelithiasis. Nonspecific mild prominence of the gallbladder wall and pericholecystic edema. Findings may represent acute cholecystitis versus fluid overload. Pancreas: Unremarkable. No ductal dilation. No mass. Spleen: Unremarkable. No splenomegaly. Adrenals: Unremarkable. No mass. Kidneys and ureters: Unremarkable. No hydronephrosis or obstructing ureteral stone. Stomach and bowel: Gastric bypass changes. Evaluation of the stomach is limited by underdistention. No mucosal thickening. No bowel obstruction or inflammation. PELVIS: Appendix: Normal appendix. Bladder: Unremarkable. No stones. No mass. Reproductive: Probable right ovarian cyst which could be further evaluated with ultrasound if clinically indicated. ABDOMEN and PELVIS: Intraperitoneal space: Unremarkable. No significant fluid collection. No free air. Bones/joints: No acute fracture. No dislocation. Soft tissues: Small fat-containing umbilical hernia. Lymph nodes: Unremarkable. No enlarged lymph nodes. IMPRESSION: 1. Cholelithiasis. Nonspecific mild prominence of the gallbladder wall and pericholecystic edema. Findings may represent acute cholecystitis versus fluid overload. 2. Probable right ovarian cyst which could be further evaluated with ultrasound if clinically indicated. 3. Hypoattenuation in the portal vein may be secondary to phase of contrast-enhancement. Limited evaluation on this exam. Probable nonspecific periportal edema. Electronically signed by: Nata Schmidt M.D. 09/25/24 04:38 AM
[2024-09-25] MEDS: cefOXitin 2,000 MG/60 ML BAG IV STA (05:16)
[2024-09-25] MEDS: ONDANSETRON INJ 2 MG/ML 2 ML VIAL IV STA (06:07)
--- NOTE | 2024-09-25 06:17 | Surgery Consultation ---
Date of Consultation September 25, 2024 Assessment & Plan (1) Acute calculous cholecystitis: Patient is a 59-year-old female who prestented to the ER last evening for severe epigastric abdominal pain that radiated into her chest and back. Patient also had associated nausea and vomiting. Upon workup, her WBC was wnl however her ALT, AST, and Alk Phos were all elevated. Tbili was wnl. CT imaging was concerning for cholelithiasis with pericholecystic edema. Patient was seen and evaluated early this morning. On exam she is tender in the RUQ and she complains of ongoing nausea. At this time gallbladder US and repeat labs are pending, including LFTs. If LFTs continue to be elevated the patient may require GI consult and possible MRCP vs ERCP. If LFTs are downtrending and US is consistent with acute cholecystitis discussed with patient possibility of surgical intervention. For now recommend keeping the patient NPO, IV hydration, and pain control. Will discuss patient's case with attending surgeon and will provide final surgical recommendations once workup is complete and AM labs are back. Supervising Physician Co-Signing Physician Notes Patient seen examined, labs and imaging reviewed, agree with above. History of gastric bypass, admitted with epigastric pain radiating to the back. CT and ultrasound showed cholelithiasis with suspected cholecystitis. On exam she is currently afebrile with stable vitals. Her abdomen is soft, tender to palpation in right upper quadrant. WBC normal, AST and ALT initially mildly elevated now with significant elevation to 1471 and 646 respectively, bilirubin and direct bilirubin normal. CT and ultrasound personally viewed and interpreted, agree with the assessment of cholelithiasis with possible cholecystitis, however she does have some periportal edema on CT MRCP has been ordered and is pending. We will await the results of the MRCP, continue n.p.o. for now. Repeat liver enzymes in the morning, if these to continue to increase I would be hesitant to remove her gallbladder in the setting of a possible hepatitis. If the MRCP is positive for choledocholithiasis, given her altered anatomy from gastric bypass, she would need to be transferred for laparoscopic assisted ERCP with rendezvous procedure. Surgery will follow, call with questions or concerns History of Present Illness Reason for Consultation: Acute cholecystitis History of Present Illness Patient is a 59-year-old female who presented to the ER last evening with complaints of severer epigastric abdominal pain. The patient states her pain started around 4PM and she treid to take some over the counter Tylenol without any relief. The pain migrated up into her chest and radiated into her back and had associated nausea and vomiting. She denies ever having pain like this in the past and states the only thing she had to eat prior to the onset was an apple. The patient denies any changes in her urinary or bowel habits and her last BM was last evening prior to coming to the hospital. Due to her ongoing symptoms she presented to the ER for further evaluation. Upon workup, CTA of the abdomen demonstrated cholelithiasis with pericholecystic edema. WBC wnl however ALT, AST, and alk phos were all elevated. Due to these findings, the surgical team was consulted for further evaluation. Patient was seen and evaluated at bedside early this morning in the ER. She is resting comfortably in bed, VSS, and states her pain has somewhat subsided however is filtering machine tender in the RUQ on exam. She also complains of ongoing nausea without any additional episodes of vomiting. Her past surgical history includes a gastric bypass which was done 2 years ago at [facility] and otherwise denies any additional abdominal surgeries. Allergies Allergy/AdvReac Type Severity Reaction Status Date / Time cat dander Allergy Unknown Itchy Verified 09/25/24 08:06 house dust Allergy Unknown Itchy Verified 09/25/24 08:06 latex Allergy Unknown itchy rash Verified 09/25/24 08:06 Home Medications Medication Instructions Recorded Confirmed Type CPAP Machine #1 ea 01/28/21 03/16/24 Rx CPAP Supplies #1 ea 01/28/21 03/16/24 Rx blood sugar diagnostic #100 ea 09/30/22 03/16/24 Rx acetaminophen 500 mg tablet 1,000 mg PO Q6H PRN Pain 06/10/24 09/25/24 History albuterol sulfate 90 mcg/actuation 2 puff inhalation UD PRN asthma 06/10/24 09/25/24 History aerosol inhaler fluticasone furoate 200 1 inh inhalation UD PRN asthma 06/10/24 09/25/24 History mcg-vilanterol 25 mcg/dose inhalation powder (Breo Ellipta) blood sugar diagnostic (OneTouch #300 ea 07/08/24 Rx Ultra Test strips) Patient History Medical History Deviated nasal septum History of anesthesia reaction History of prediabetes History of ankle fracture (2021) Osteoarthritis Neck problem History of COVID-19 Asthma GERD (gastroesophageal reflux disease) Surgical History History of colonoscopy History of gastric bypass (2021) History of ankle surgery Nausea and vomiting after administration of anesthetic agent History of esophagogastroduodenoscopy (EGD) H/O bilateral breast reduction surgery Family History Mother Brain tumor Pure hypercholesterolemia Hypertension Family history of reaction to anesthesia Father Diabetes Family history of diabetes mellitus Hypertension Stroke Grandmother Diabetes Brother Environmental allergies Allergic rhinitis Hypertension Asthma Sister Hypertension Aunt Breast cancer Other No family history of bleeding disorder Denies family history of Ovarian cancer Prostate cancer Myocardial infarction Colorectal cancer Social History Smoking Status: Never smoker Second Hand Exposure: No; Do You Dip or Chew Tobacco: No; Hx Alcohol Use: No Hx Substance Use: No Preferred Language: Faroese Communication Ability: Effective Visual Impairment: No Limitations Hearing Ability: Normal Assisted Living Assistant Required: No Beliefs That Will Affect Care: None marital status: Current Living Situation: Spouse current occupational status: employed current occupation: Customer service at [employer] Feels Safe at Home: Yes Safety Concerns: Feels Safe At This Time Childhood Exposure to Second-Hand Smoke: No Diet: regular caffeine: No during the past year weight has: increased > 10 lbs Dental Care, Regularly: Yes Physical Activity Frequency: Does not Exercise Seatbelt Use: always Sunscreen Use: Yes Assistive Devices: Glasses Review of Systems Constitutional: as per Subjective / HPI Respiratory: + problem reported; no cough and no dysp nanci Cardiovascular: no radiating jaw, neck or arm pain, no palpitations, no lightheadedness and no syncope Gastrointestinal: + nausea and + vomiting; no change in annette wel habits and no change in stools Genitourinary: no dysuria, no urinary frequency and no hematuria Physical Exam Constitutional: Resting in bed, comfortable, somewhat diaphoretic and pale appearing Respiratory: normal respiratory effort, lungs clear to auscultation Cardiovascular: RRR, no murmur, no edema Gastrointestinal (Abdomen): Abdomen soft, nondistended, moderate TTP in the RUQ with +Meredith's sign. No signs of peritonitis Skin: no rashes, warm and dry Psychiatric: A+Ox3, euthymic affect Results & Data Vital Signs (Past 12 Hours) Vital Signs Pulse Resp BP Pulse Ox O2 Del Method O2 Flow Rate 09/25/24 04:00 144/84 H 09/25/24 04:00 59 L 17 99 09/25/24 03:45 64 14 98 09/25/24 03:33 64 13 99 09/25/24 03:30 154/81 H 09/25/24 03:30 154/81 H 09/25/24 03:24 19 99 09/25/24 03:19 61 09/25/24 03:18 71 15 98 09/25/24 03:00 163/95 H 09/25/24 03:00 78 18 98 09/25/24 02:30 160/94 H 09/25/24 02:30 160/94 H 09/25/24 02:15 87 21 99 09/25/24 01:45 64 23 98 09/25/24 01:30 72 24 162/95 H 98 09/25/24 01:00 68 16 155/91 H 100 09/25/24 00:05 99 Nasal Cannula 2 09/25/24 00:00 64 20 134/72 88 L 09/25/24 00:00 88 L Room Air 09/24/24 23:28 Room Air 09/24/24 23:18 72 09/24/24 23:02 92 H 26 H 215/93 H 100 Room Air Diagnostic Findings Exam(s): CTA ABDOMEN + PELVIS W/WO Contrast EXAM: CT Angiography Abdomen and Pelvis Without and With Intravenous Contrast CLINICAL HISTORY: Reason for exam: tearing epigastric pain through to back. TECHNIQUE: Axial computed tomographic angiography images of the abdomen and pelvis without and with intravenous contrast. CTDI is 78.42 mGy and DLP is 2918. 76 mGy-cm. Automated exposure control was utilized for the study. A dose lowering technique was utilized adhering to the principles of ALARA. MIP reconstructed images were created and reviewed. CONTRAST: Contrast must be dictated COMPARISON: None FINDINGS: VASCULATURE: Aorta: No acute findings. No abdominal aortic aneurysm. No dissection. Celiac trunk and mesenteric arteries: No acute findings. No occlusion or significant stenosis. Renal arteries: No acute findings. No occlusion or significant stenosis. Iliac arteries: No acute findings. No occlusion or significant stenosis. Portal veins: Hypoattenuation in the portal vein may be secondary to phase of contrast-enhancement. Limited evaluation on this exam. Probable nonspecific periportal edema. Lung bases: Please see accompanying CT chest for further details. ABDOMEN: Liver: Hepatomegaly. Gallbladder and bile ducts: Cholelithiasis. Nonspecific mild prominence of the gallbladder wall and pericholecystic edema. Findings may represent acute cholecystitis versus fluid overload. Pancreas: Unremarkable. No ductal dilation. No mass. Spleen: Unremarkable. No splenomegaly. Adrenals: Unremarkable. No mass. Kidneys and ureters: Unremarkable. No hydronephrosis or obstructing ureteral stone. Stomach and bowel: Gastric bypass changes. Evaluation of the stomach is limited by underdistention. No mucosal thickening. No bowel obstruction or inflammation. PELVIS: Appendix: Normal appendix. Bladder: Unremarkable. No stones. No mass. Reproductive: Probable right ovarian cyst which could be further evaluated with ultrasound if clinically indicated. ABDOMEN and PELVIS: Intraperitoneal space: Unremarkable. No significant fluid collection. No free air. Bones/joints: No acute fracture. No dislocation. Soft tissues: Small fat-containing umbilical hernia. Lymph nodes: Unremarkable. No enlarged lymph nodes. IMPRESSION: 1. Cholelithiasis. Nonspecific mild prominence of the gallbladder wall and pericholecystic edema. Findings may represent acute cholecystitis versus fluid overload. 2. Probable right ovarian cyst which could be further evaluated with ultrasound if clinically indicated. 3. Hypoattenuation in the portal vein may be secondary to phase of contrast-enhancement. Limited evaluation on this exam. Probable nonspecific periportal edema. PG Care Time/CCT Total # of Minutes Spent Total Time Spent with Patient: Total time spent is greater than 50% in coordination of care (as documented) at patient's floor/unit and/or counseling patient: [place] [address] IN/OBS CONSULT LVL 2,35M Patient Type New Medical Decision Making Straight Forward Diagnoses Acute calculous cholecystitis K80.00
[2024-09-25 06:26] LABS: Basophils # (auto) 0.01 K/uL (0.00-0.20); Basophils % (auto) 0.2 %; Hematocrit (blood only) 42.5 % (37.0-47.0); Hemoglobin 14.3 g/dl (12.0-16.0); Immature Granulocytes # (auto) 0.01 K/uL (0.01-0.20); Immature Granulocytes % (auto) 0.2 %; Lymphocytes # (auto) 0.87 K/uL (1.20-3.40); Lymphocytes % (auto) 17.9 %; Mean Corpuscular Hemoglobin 30.7 pg (25.0-34.0); Mean Corpuscular Hgb Conc 33.6 g/dL (32.0-36.0); Mean Corpuscular Volume 91.2 fL (80.0-100.0); Mean Platelet Volume 10.7 fL (9.4-12.4); Monocytes # (auto) 0.02 K/uL (0.11-0.59); Monocytes % (auto) 0.4 %; Neutrophils # (auto) 3.96 K/uL (1.40-6.50); Neutrophils % (auto) 81.3 %; Platelet Count 207 K/uL (130-400); RDW Coefficient of Variation 12.4 % (11.5-14.5); RDW Standard Deviation 40.9 fL (36.4-46.3); Red Blood Count 4.66 M/uL (4.20-5.40); White Blood Count 4.87 K/ul (4.8-10.8)
--- NOTE | 2024-09-25 06:33 | History & Physical Report ---
Date of Service September 25, 2024 Assessment & Plan (1) Acute calculous cholecystitis: (2) History of gastric bypass: (3) Restrictive lung disease: (4) ENMA (obstructive sleep apnea): (5) Allergic rhinitis with postnasal drip: (6) Pre-diabetes: (7) Polycystic ovarian syndrome: (8) Hyperlipidemia: (9) GERD without esophagitis: (10) Asthma, moderate persistent: (11) Osteoarthritis: Plan 59 year old female with PMHx including gastric bypass 2021, asthma, HLD, GERD, ENMA presenting with acute onset abdominal pain: #Abdominal Pain: Clinical picture and imaging favors acute calculous cholecystitis, RUQ US ordered for further clarification, pending AST, ALT, alk phos mildly elevated - repeat hepatic function panel pending Surgery consulted, appreciate recs Lactate elevated at 3.6 likely d/t volume contraction, no leukocytosis or fever - will give another 1L NSS bolus followed by maintenance NSS @125ml/hour x1L - repeat lactate following fluid resuscitation, monitor vitals Will empirically start IV Ceftriaxone NPO pending surgical evaluation Dilaudid PRN for pain control Zofran PRN for N/V Chronic Problems: ENMA: CPAP QHS PRN Asthma: Continue home inhalers PRN GERD: IV Pepcid BID Admit to med/surg Full code FEN/GI: NPO VTE ppx: chemical ppx held pending surgical evaluation History of Present Illness Primary Care Provider: Lukasz Morrow MD 59 year old female with PMHx including gastric bypass 2021, asthma, HLD, GERD, ENMA presenting with acute onset abdominal pain. Pain started around 1600 on 09/24, epigastric pain was constant, radiation into RUQ and back. Denies immediate postprandial onset, last meal of 2 hard boiled eggs and a sugar sweetened beverage was several hours prior to onset of pain. Last thing she ate prior to onset of abdominal pain was an apple about 2 hours earlier. +N/V, states she must have vomited at least 10 times in total, could not even tolerate water. Had 2 normal BMs yesterday, denies diarrhea, no blood in stool. Patient shivering at time of evaluation, states this just started when abx was administered - o/w denies associated fevers/chills. ED course: CTA A/P suggestive of acute cholecystitis with pericholecystic edema, +cholelithiasis. Labs: no leukocytosis, mild elevation in AST/ALT/alk phos, lactate 3.6 (collected after pt was given 1L bolus NS) VSS S/p 1 dose Cefoxitin, Dilaudid for pain control, Zofran for N/V Allergies Allergy/AdvReac Type Severity Reaction Status Date / Time cat dander Allergy Unknown Itchy Verified 09/25/24 08:06 house dust Allergy Unknown Itchy Verified 09/25/24 08:06 latex Allergy Unknown itchy rash Verified 09/25/24 08:06 Home Medications Medication Instructions Recorded Confirmed Type CPAP Machine #1 ea 01/28/21 03/16/24 Rx CPAP Supplies #1 ea 01/28/21 03/16/24 Rx blood sugar diagnostic #100 ea 09/30/22 03/16/24 Rx acetaminophen 500 mg tablet 1,000 mg PO Q6H PRN Pain 06/10/24 09/25/24 History albuterol sulfate 90 mcg/actuation 2 puff inhalation UD PRN asthma 06/10/24 09/25/24 History aerosol inhaler fluticasone furoate 200 1 inh inhalation UD PRN asthma 06/10/24 09/25/24 History mcg-vilanterol 25 mcg/dose inhalation powder (Breo Ellipta) blood sugar diagnostic (OneTouch #300 ea 07/08/24 Rx Ultra Test strips) hydromorphone 0.5 mg/0.5 mL 0.5 mg (0.5 mL) IV Q3H PRN pain #0 09/25/24 Rx injection syringe mL hydromorphone 1 mg/mL injection 1 mg IV Q3H PRN #0 mL 09/25/24 Rx syringe ondansetron HCl (PF) 4 mg/2 mL 4 mg (2 mL) IV Q6H PRN #0 mL 09/25/24 Rx injection solution Past Med/Surg History Problem List (Updated 09/25/24 @ 10:46 by Molly Hightower MD) Lung nodule Acute upper back pain (Acute) Chest pain (Acute) Acute cholecystitis (Acute) Acute calculous cholecystitis History of colon polyps Hair changes Cervical radiculopathy History of ankle fracture (10/30/21) right ankle Vitamin B12 deficiency Myofascial pain Thoracic back pain Tarsal tunnel syndrome, right lower limb Maxillary sinus cyst Hypertrophy of both inferior nasal turbinates Chronic rhinitis History of gastric bypass 03/06/22 Cervical radiculopathy at C8 Vitamin D deficiency Dietary counseling and surveillance Obesity Metabolic syndrome Restrictive lung disease ENMA (obstructive sleep apnea) Left foot pain Hypersomnia Allergic rhinitis with postnasal drip Vaginal dryness Encounter for annual routine gynecological examination Pre-diabetes (Acute) Polycystic ovarian syndrome (Chronic) Insomnia Hyperlipidemia (08/24/12) GERD without esophagitis (Acute) Deviated nasal septum (Acute) Asthma, moderate persistent (Acute) Osteoarthritis Medical History Deviated nasal septum History of anesthesia reaction History of prediabetes History of ankle fracture (2021) Osteoarthritis Neck problem History of COVID-19 Asthma GERD (gastroesophageal reflux disease) Surgical History History of colonoscopy History of gastric bypass (2021) History of ankle surgery Nausea and vomiting after administration of anesthetic agent History of esophagogastroduodenoscopy (EGD) H/O bilateral breast reduction surgery Family History Mother Brain tumor Pure hypercholesterolemia Hypertension Family history of reaction to anesthesia Father Diabetes Family history of diabetes mellitus Hypertension Stroke Grandmother Diabetes Brother Environmental allergies Allergic rhinitis Hypertension Asthma Sister Hypertension Aunt Breast cancer Other No family history of bleeding disorder Denies family history of Ovarian cancer Prostate cancer Myocardial infarction Colorectal cancer Social History Smoking Status: Never smoker Second Hand Exposure: No; Do You Dip or Chew Tobacco: No; Hx Alcohol Use: No Hx Substance Use: No Preferred Language: Divehi Communication Ability: Effective Visual Impairment: No Limitations Hearing Ability: Normal Light Rail Signal Technician Required: No Beliefs That Will Affect Care: None marital status: Current Living Situation: Spouse current occupational status: employed current occupation: Customer service at [employer] Feels Safe at Home: Yes Childhood Exposure to Second-Hand Smoke: No Diet: regular caffeine: No during the past year weight has: increased > 10 lbs Dental Care, Regularly: Yes Physical Activity Frequency: Does not Exercise Seatbelt Use: always Sunscreen Use: Yes Assistive Devices: Glasses Review of Systems Review of Systems: as per HPI Physical Exam Physical Exam: Constitutional: in moderate distress, shivering HEENT: NCAT, no conjunctival injection nor scleral icterus CV: RRR, extremities well-perfused, no LE edema Resp: no increased work of breathing, lungs CTAB GI: soft, nondistended, +TTP in epigastric region and RUQ, +Meredith sign, no rigidity MSK: no gross deformities Skin: warm, dry, no rash appreciated Neuro: alert, oriented, no focal neurologic deficit appreciated Results & Data Results & Data Vital Signs (Past 12 Hours) Vital Signs Pulse Resp BP Pulse Ox O2 Del Method O2 Flow Rate 09/25/24 04:00 144/84 H 09/25/24 04:00 59 L 17 99 09/25/24 03:45 64 14 98 09/25/24 03:33 64 13 99 09/25/24 03:30 154/81 H 09/25/24 03:30 154/81 H 09/25/24 03:24 19 99 09/25/24 03:19 61 09/25/24 03:18 71 15 98 09/25/24 03:00 163/95 H 09/25/24 03:00 78 18 98 09/25/24 02:30 160/94 H 09/25/24 02:30 160/94 H 09/25/24 02:15 87 21 99 09/25/24 01:45 64 23 98 09/25/24 01:30 72 24 162/95 H 98 09/25/24 01:00 68 16 155/91 H 100 09/25/24 00:05 99 Nasal Cannula 2 09/25/24 00:00 64 20 134/72 88 L 09/25/24 00:00 88 L Room Air 09/24/24 23:28 Room Air 09/24/24 23:18 72 09/24/24 23:02 92 H 26 H 215/93 H 100 Room Air Supervising Physician Co-Signing Physician Notes Attending addendum: I have physically seen this patient, have supervised the medical residents activities, and agree with the H&P unless as otherwise noted. Assessment and Plan: The patient is a 59-year-old female with past medical history including gastric bypass 2021, asthma, hyperlipidemia, GERD, metabolic syndrome, hypersomnia, restrictive lung disease, and ENMA. She presents to the emergency department with acute onset of generalized abdominal pain. Acute cholecystitis- CT scan abdomen pelvis concerning for acute cholecystitis The patient be admitted to the medical service for further evaluation N.p.o. AST 136, ALT 54, lactate 3.6 with follow-up pending Ceftriaxone 2 g IV daily Zofran 4 mg IV every 6 hours as needed Dilaudid 0.5 mg IV every 3 hours as needed for moderate pain Dilaudid 1 mg IV every 3 hours as needed for severe pain NSS 1 L bolus from the ED, to be followed by NSS at 125 mL/h is 1 additional liter General Surgery to be consulted, and they have asked that ultrasound of abdomen be added for further clarification Chronic medical conditions: ENMA-CPAP at bedtime as needed Asthma-continue Breo Ellipta/albuterol HFA Resident Activity Tracking Resident Involvement: Resident Care Provided Care Provided: Adult Hospital Medicine (10) Asthma, moderate persistent Asthma complication type: with acute exacerbation Qualified Code(s): J45.41 - Moderate persistent asthma with (acute) exacerbation
[2024-09-25 07:10] LABS: Albumin Level 4.3 gm/dl (3.4-5.0); Bilirubin Direct 0.2 mg/dl (0-0.2); Bilirubin,Total 0.8 mg/dl (0.2-1.0); Total Protein 7.2 gm/dl (6.0-8.3); Troponin I High Sensitivity 17.6 pg/ml (0-14)
[2024-09-25] MEDS: SODIUM CHLORIDE 0.9% 1,000 ML IV STA (07:41)
[2024-09-25] MEDS: cefTRIAXone SODIUM 2,000 MG/50 ML BAG IV STA (07:43)
--- NOTE | 2024-09-25 07:52 | Hospitalist Progress Note ---
Date of Service September 25, 2024 Assessment & Plan (1) Acute calculous cholecystitis: (2) History of gastric bypass: (3) Restrictive lung disease: (4) ENMA (obstructive sleep apnea): (5) Allergic rhinitis with postnasal drip: (6) Pre-diabetes: (7) Polycystic ovarian syndrome: (8) Hyperlipidemia: (9) GERD without esophagitis: (10) Asthma, moderate persistent: (11) Osteoarthritis: Plan 59 year old female with PMHx including gastric bypass 2021, asthma, HLD, GERD, ENMA presenting with acute onset abdominal pain: #Abdominal Pain: Clinical picture and imaging favors acute calculous cholecystitis, RUQ US ordered for further clarification, pending AST, ALT, alk phos mildly elevated - repeat hepatic function panel pending Surgery consulted, appreciate recs Lactate elevated at 3.6 likely d/t volume contraction, no leukocytosis or fever - will give another 1L NSS bolus followed by maintenance NSS @125ml/hour x1L - repeat lactate following fluid resuscitation, monitor vitals Will empirically start IV Ceftriaxone NPO pending surgical evaluation Dilaudid PRN for pain control Zofran PRN for N/V Chronic Problems: ENMA: CPAP QHS PRN Asthma: Continue home inhalers PRN GERD: IV Pepcid BID Admit to med/surg Full code FEN/GI: NPO VTE ppx: chemical ppx held pending surgical evaluation Results & Data Results & Data Vital Signs (Past 12 Hours) Vital Signs Temp Pulse Resp BP Pulse Ox O2 Del Method O2 Flow Rate 09/25/24 07:43 39.3 C H 09/25/24 07:06 86 22 96 09/25/24 04:00 144/84 H 09/25/24 04:00 59 L 17 99 09/25/24 03:45 64 14 98 09/25/24 03:33 64 13 99 09/25/24 03:30 154/81 H 09/25/24 03:30 154/81 H 09/25/24 03:24 19 99 09/25/24 03:19 61 09/25/24 03:18 71 15 98 09/25/24 03:00 163/95 H 09/25/24 03:00 78 18 98 09/25/24 02:30 160/94 H 09/25/24 02:30 160/94 H 09/25/24 02:15 87 21 99 09/25/24 01:45 64 23 98 09/25/24 01:30 72 24 162/95 H 98 09/25/24 01:00 68 16 155/91 H 100 09/25/24 00:05 99 Nasal Cannula 2 09/25/24 00:00 64 20 134/72 88 L 09/25/24 00:00 88 L Room Air 09/24/24 23:28 Room Air 09/24/24 23:18 72 09/24/24 23:02 92 H 26 H 215/93 H 100 Room Air (10) Asthma, moderate persistent Asthma complication type: with acute exacerbation Qualified Code(s): J45.41 - Moderate persistent asthma with (acute) exacerbation
[2024-09-25] MEDS: 4.5GM X1 IV STA (07:57)
--- NOTE | 2024-09-25 08:01 | Ultrasound Report ---
EXAM: US gallbladder CLINICAL HISTORY: RUQ pain. TECHNIQUE: Limited ultrasound of the liver and gallbladder was performed in greyscale and Doppler. Multiple images were obtained in transverse and longitudinal planes. COMPARISON: No prior studies are available for comparison. FINDINGS: Liver: Liver size: Is enlarged in size and measures 20.5 cm. with heterogenous parenchymal echotexture. No evidence of focal lesions, cysts, or masses. Hepatic vasculature appears normal. Gallbladder: Gallbladder size: is average size measures 11 cm. It contains multiple gall bladder stones, the largest measuring 8 mm in diameter with an internal biliary smudge noted. Evidence of increased gall bladder wall thickness measures 7.8 mm with a surrounding rim of pericholecystic free fluid. Positive Meredith's sign. Biliary Tree: Common bile duct diameter: 5 mm The common bile duct is within normal limits in caliber and not dilated. No evidence of choledocholithiasis or biliary obstruction. IMPRESSION: 1. Moderate hepatomegaly with heterogeneous parenchyma for correlation with LFT. 2. Acute calcular cholecystitis as described above. Electronically signed by Param Dean 09-25-2024 08:01 AM
[2024-09-25] MEDS ORDERED: FLUTICASONE/VILANTEROL 200/25MCG 14 PUFFS/INHALER INH PRN (09:34)
[2024-09-25] MEDS ORDERED: ONDANSETRON INJ 2 MG/ML 2 ML VIAL IV PRN (09:34)
[2024-09-25] MEDS ORDERED: GABAPENTIN 100 MG CAP PO PRN (09:34)
[2024-09-25] MEDS ORDERED: ALBUTEROL HFA 8 GM INHALER INH PRN (09:34)
[2024-09-25] MEDS ORDERED: HYDROmorphone INJ 0.5 MG/0.5 ML SYR IV PRN (09:34)
[2024-09-25] MEDS ORDERED: ACETAMINOPHEN 1,000 MG/100 ML VIAL IV PRN (09:34)
[2024-09-25] MEDS ORDERED: HYDROmorphone INJ 1 MG/ML SYRINGE IV PRN (09:34)
[2024-09-25 09:43] VITALS: BP 108/63; PULSE 96; RESP 16; TEMP 99; O2SAT 96
--- NOTE | 2024-09-25 10:01 | Magnetic Resonance Report ---
MR MRCP HISTORY: 59 years-old Female cholecystitis, rising LFTs acute right upper quadrant abdominal pain COMPARISON: CTA abdomen and pelvis 09/24/2024 TECHNIQUE: MRCP was obtained without IV contrast FINDINGS: The imaged lower chest appears unremarkable. Indeterminate cystic lesion of the pelvis redemonstrated measuring approximately 8 cm. Postoperative changes of the stomach. No bowel obstruction or bowel wa ll thickening. Unremarkable spleen, pancreas and adrenal glands. No hydronephrosis. No lymphadenopath y. Liver measures up to 23 cm in length. Distended gallbladder with wall thickening, layering sludge and cholelithiasis with pericholecystic a nd edema. The common bile duct measures 4 mm. No choledocholithiasis or pancreatic ductal dilation. N o pancreatic zone. IMPRESSION: 1. Cholelithiasis with evidence of acute cholecystitis. 2. No choledocholithiasis or biliary ductal dilation. 3. Indeterminate 8 cm adnexal cystic lesion of the pelvis redemonstrated. Follow-up with gynecology r ecommended. ACT 112: Negative or not required by law. The above report was generated using voice recognition software. It may contain grammatical, syntax o r spelling errors. Electronically signed by: Shashi Oliveros M.D. 09/25/2024 9:59 AM
--- NOTE | 2024-09-25 10:45 | Discharge Summary ---
"Date of Service September 25, 2024 Admission HPI Per Admitting Provider 59 year old female with PMHx including gastric bypass 2021, asthma, HLD, GERD, ENMA presenting with acute onset abdominal pain. Pain started around 1600 on 09/24, epigastric pain was constant, radiation into RUQ and back. Denies immediate postprandial onset, last meal of 2 hard boiled eggs and a sugar sweetened beverage was several hours prior to onset of pain. Last thing she ate prior to onset of abdominal pain was an apple about 2 hours earlier. +N/V, states she must have vomited at least 10 times in total, could not even tolerate water. Had 2 normal BMs yesterday, denies diarrhea, no blood in stool. Patient shivering at time of evaluation, states this just started when abx was administered - o/w denies associated fevers/chills. ED course: CTA A/P suggestive of acute cholecystitis with pericholecystic edema, +cholelithiasis. Labs: no leukocytosis, mild elevation in AST/ALT/alk phos, lactate 3.6 (collected after pt was given 1L bolus NS) VSS S/p 1 dose Cefoxitin, Dilaudid for pain control, Zofran for N/V Principal Diagnosis cholecystitis Discharge Exam Gen: non-toxic appearing patient in NAD HEENT: AT NC MMM Resp: CTAB no wheezing no increased work of breathing CV: RRR no m/r/g clinically well perfused Abd: soft, diffusely tender, non-distended MSK: no obvious deformities Skin: no rashes or bruising Neuro: alert and oriented Psych: appropriate mood and affect Discharge Data Allergies Allergy/AdvReac Type Severity Reaction Status Date / Time cat dander Allergy Unknown Itchy Verified 09/25/24 08:06 house dust Allergy Unknown Itchy Verified 09/25/24 08:06 latex Allergy Unknown itchy rash Verified 09/25/24 08:06 Consultations 09/25/24 05:33 ED Decision to Admit Stat 09/25/24 07:20 Consult Gastroenterology Routine 09/25/24 09:34 Consult General Surgery Routine 09/25/24 10:11 Burn CD for patient Stat Ordered Studies Cholangiopancreatography MRI 09/25/24 07:24 FINDINGS: The imaged lower chest appears unremarkable. Indeterminate cystic lesion of the pelvis redemonstrated measuring approximately 8 cm. Postoperative changes of the stomach. No bowel obstruction or bowel wall thickening. Unremarkable spleen, pancreas and adrenal glands. No hydronephrosis. No lymphadenopathy. Liver measures up to 23 cm in length. Distended gallbladder with wall thickening, layering sludge and cholelithiasis with pericholecystic and edema. The common bile duct measures 4 mm. No choledocholithiasis or pancreatic ductal dilation. No pancreatic zone. IMPRESSION: 1. Cholelithiasis with evidence of acute cholecystitis. 2. No choledocholithiasis or biliary ductal dilation. 3. Indeterminate 8 cm adnexal cystic lesion of the pelvis redemonstrated. Follow-up with gynecology recommended. Gallbladder US: FINDINGS: Liver: Liver size: Is enlarged in size and measures 20.5 cm. with heterogenous parenchymal echotexture. No evidence of focal lesions, cysts, or masses. Hepatic vasculature appears normal. Gallbladder: Gallbladder size: is average size measures 11 cm. It contains multiple gall bladder stones, the largest measuring 8 mm in diameter with an internal biliary smudge noted. Evidence of increased gall bladder wall thickness measures 7.8 mm with a surrounding rim of pericholecystic free fluid. Positive Meredith's sign. Biliary Tree: Common bile duct diameter: 5 m. The common bile duct is within normal limits in caliber and not dilated. No evidence of choledocholithiasis or biliary obstruction. IMPRESSION: 1. Moderate hepatomegaly with heterogeneous parenchyma for correlation with LFT. 2. Acute calcular cholecystitis as described above. CTA Chest: FINDINGS: Pulmonary arteries: Unremarkable. No pulmonary embolus identified. Aorta: No aortic aneurysm or dissection. Aberrant right subclavian artery. Lungs: Nonspecific 4 mm nodule along the posterior medial right lower lobe. Nonspecific 3 mm nodule in the lingula. If patient is at low risk, no further follow-up necessary. If patient is at high risk, consider follow-up CT in 12 months. No focal consolidation. Pleural space: Unremarkable. No significant effusion. No pneumothorax. Heart: Unremarkable. No cardiomegaly. No significant pericardial effusion. No evidence of RV dysfunction. Bones/joints: Degenerative changes of the spine. No acute fracture. No dislocation. Soft tissues: Unremarkable. Lymph nodes: Unremarkable. No enlarged lymph nodes. IMPRESSION: 1. No pulmonary embolus identified. 2. No aortic aneurysm or dissection. Aberrant right subclavian artery. 3. Nonspecific 4 mm nodule along the posterior medial right lower lobe. Nonspecific 3 mm nodule in the lingula. If patient is at low risk, no further follow-up necessary. If patient is at high risk, consider follow-up CT in 12 months. CTA Abdomen and Pelvis: FINDINGS: VASCULATURE: Aorta: No acute findings. No abdominal aortic aneurysm. No dissection. Celiac trunk and mesenteric arteries: No acute findings. No occlusion or significant stenosis. Renal arteries: No acute findings. No occlusion or significant stenosis. Iliac arteries: No acute findings. No occlusion or significant stenosis. Portal veins: Hypoattenuation in the portal vein may be secondary to phase of contrast-enhancement. Limited evaluation on this exam. Probable nonspecific periportal edema. Lung bases: Please see accompanying CT chest for further details. ABDOMEN: Liver: Hepatomegaly. Gallbladder and bile ducts: Cholelithiasis. Nonspecific mild prominence of the gallbladder wall and pericholecystic edema. Findings may represent acute cholecystitis versus fluid overload. Pancreas: Unremarkable. No ductal dilation. No mass. Spleen: Unremarkable. No splenomegaly. Adrenals: Unremarkable. No mass. Kidneys and ureters: Unremarkable. No hydronephrosis or obstructing ureteral stone. Stomach and bowel: Gastric bypass changes. Evaluation of the stomach is limited by underdistention. No mucosal thickening. No bowel obstruction or inflammation. PELVIS: Appendix: Normal appendix. Bladder: Unremarkable. No stones. No mass. Reproductive: Probable right ovarian cyst which could be further evaluated with ultrasound if clinically indicated. ABDOMEN and PELVIS: Intraperitoneal space: Unremarkable. No significant fluid collection. No free air. Bones/joints: No acute fracture. No dislocation. Soft tissues: Small fat-containing umbilical hernia. Lymph nodes: Unremarkable. No enlarged lymph nodes. IMPRESSION: 1. Cholelithiasis. Nonspecific mild prominence of the gallbladder wall and pericholecystic edema. Findings may represent acute cholecystitis versus fluid overload. 2. Probable right ovarian cyst which could be further evaluated with ultrasound if clinically indicated. 3. Hypoattenuation in the portal vein may be secondary to phase of contrast-enhancement. Limited evaluation on this exam. Probable nonspecific periportal edema. Hospital Course (1) Acute calculous cholecystitis: 59 year old female with PMHx including gastric bypass 2021, asthma, HLD, GERD, ENMA presenting with acute onset abdominal pain: #Abdominal Pain: Acute calculous cholecystitis. Signs of sepsis with end organ hypoperfusion. Tmax 39.3, tachypneic, tachycardic. Lactate 3.6. Up-trending LFTs. Discussed with GI - recommend transfer for MRCP/ERCP and as patient with history of gastric bypass would recommend tertiary care center. Surg also on board and following. No indications for emergent surgery as present. Interventions: Zosyn for empiric abx Imaging as below Pain control - Tylenol IV 1 g Q8H, Dilaudid IV 0.5 mg | 1.0 mg Zofran on board as well for antiemetics, QTC 424 FENGI: s/p 2.5 L, NPO, mIVF @ 125 mL/hr Plan: Transfer to [facility] - Dr. Rahul Hampton accepting physician. ACLS for cardiopulmonary monitoring, IV fluids, IV pain meds, and IV antiemetics. Chronic Problems: ENMA: CPAP QHS PRN Asthma: Continue home inhalers PRN GERD: IV Pepcid BID (2) Lung nodule: Incidental findings on imaging 4 mm posterior medial right lower lobe and 3 mm lingula. Follow up outpatient with imaging in 12 months if patient is high risk. Otherwise no further imaging recommended by radiology. (3) History of gastric bypass: (4) Restrictive lung disease: (5) ENMA (obstructive sleep apnea): (6) Allergic rhinitis with postnasal drip: (7) Pre-diabetes: (8) Polycystic ovarian syndrome: (9) Hyperlipidemia: (10) GERD without esophagitis: (11) Asthma, moderate persistent: (12) Osteoarthritis: Total Time Total Time Spent Total Time Spent (In Minutes): See attending attestation Discharge Plan Discharge Items Patient Disposition: Transfer Acute Care Hospital Reason For Visit: ABD PAIN Discharge Diagnosis: cholelithiasis/cholecystitis Activity: Per Instructions section Non-emergency contact: Primary Care Provider and Business Specialist Call non-emergency contact if: you have any medication questions Follow-up/Referrals: ProLukasz MD [Primary Care Provider] - Diet: Nothing by Mouth Addtl Attending Provider Instructions: 59 year old female with PMHx including gastric bypass 2021, asthma, HLD, GERD, ENMA presenting with acute onset abdominal pain: #Abdominal Pain: Acute calculous cholecystitis. Signs of sepsis with end organ hypoperfusion. Tmax 39.3, tachypneic, tachycardic. Lactate 3.6. Up-trending LFTs. Discussed with GI - recommend transfer for MRCP/ERCP and as patient with history of gastric bypass would recommend tertiary care center. Surg also on board and following. No indications for emergent surgery as present. Interventions: Zosyn for empiric abx Imaging as below Pain control - Tylenol IV 1 g Q8H, Dilaudid IV 0.5 mg | 1.0 mg Zofran on board as well for antiemetics, QTC 424 FENGI: s/p 2.5 L, NPO, mIVF @ 125 mL/hr Plan: Transfer to [facility] - Dr. Rahul Hampton accepting physician. ACLS for cardiopulmonary monitoring, IV fluids, IV pain meds, and IV antiemetics. Chronic Problems: ENMA: CPAP QHS PRN Asthma: Continue home inhalers PRN GERD: IV Pepcid BID Labs: Lactate: 3.6 --> AST: 136 --> 1471 ALT: 54 --> 646 Alk Phos: 113 --> 249 Tbili - 0.8 HsTrop 13.1 --> 17.6 --> 22.5 Imaging: Gallbladder US: FINDINGS: Liver: Liver size: Is enlarged in size and measures 20.5 cm. with heterogenous parenchymal echotexture. No evidence of focal lesions, cysts, or masses. Hepatic vasculature appears normal. Gallbladder: Gallbladder size: is average size measures 11 cm. It contains multiple gall bladder stones, the largest measuring 8 mm in diameter with an internal biliary smudge noted. Evidence of increased gall bl adder wall thickness measures 7.8 mm with a surrounding rim of pericholecystic free fluid. Positive Meredith's sign. Biliary Tree: Common bile duct diameter: 5 m. The common bile duct is within normal limits in caliber and not dilated. No evidence of choledocholithiasis or biliary obstruction. IMPRESSION: 1. Moderate hepatomegaly with heterogeneous parenchyma for correlation with LFT. 2. Acute calcular cholecystitis as described above. CTA Chest: FINDINGS: Pulmonary arteries: Unremarkable. No pulmonary embolus identified. Aorta: No aortic aneurysm or dissection. Aberrant right subclavian artery. Lungs: Nonspecific 4 mm nodule along the posterior medial right lower lobe. Nonspecific 3 mm nodule in the lingula. If patient is at low risk, no further follow-up necessary. If patient is at high risk, consider follow-up CT in 12 months. No focal consolidation. Pleural space: Unremarkable. No significant effusion. No pneumothorax. Heart: Unremarkable. No cardiomegaly. No significant pericardial effusion. No evidence of RV dysfunction. Bones/joints: Degenerative changes of the spine. No acute fracture. No dislocation. Soft tissues: Unremarkable. Lymph nodes: Unremarkable. No enlarged lymph nodes. IMPRESSION: 1. No pulmonary embolus identified. 2. No aortic aneurysm or dissection. Aberrant right subclavian artery. 3. Nonspecific 4 mm nodule along the posterior medial right lower lobe. Nonspecific 3 mm nodule in the lingula. If patient is at low risk, no further follow-up necessary. If patient is at high risk, consider follow-up CT in 12 months. CTA Abdomen and Pelvis: FINDINGS: VASCULATURE: Aorta: No acute findings. No abdominal aortic aneurysm. No dissection. Celiac trunk and mesenteric arteries: No acute findings. No occlusion or significant stenosis. Renal arteries: No acute findings. No occlusion or significant stenosis. Iliac arteries: No acute findings. No occlusion or significant stenosis. Portal veins: Hypoattenuation in the portal vein may be secondary to phase of contrast-enhancement. Limited evaluation on this exam. Probable nonspecific periportal edema. Lung bases: Please see accompanying CT chest for further details. ABDOMEN: Liver: Hepatomegaly. Gallbladder and bile ducts: Cholelithiasis. Nonspecific mild prominence of the gallbladder wall and pericholecystic edema. Findings may represent acute cholecystitis versus fluid overload. Pancreas: Unremarkable. No ductal dilation. No mass. Spleen: Unremarkable. No splenomegaly. Adrenals: Unremarkable. No mass. Kidneys and ureters: Unremarkable. No hydronephrosis or obstructing ureteral stone. Stomach and bowel: Gastric bypass changes. Evaluation of the stomach is limite d by underdistention. No mucosal thickening. No bowel obstruction or inflammation. PELVIS: Appendix: Normal appendix. Bladder: Unremarkable. No stones. No mass. Reproductive: Probable right ovarian cyst which could be further evaluated with ultrasound if clinically indicated. ABDOMEN and PELVIS: Intraperitoneal space: Unremarkable. No significant fluid collection. No free air. Bones/joints: No acute fracture. No dislocation. Soft tissues: Small fat-containing umbilical hernia. Lymph nodes: Unremarkable. No enlarged lymph nodes. IMPRESSION: 1. Cholelithiasis. Nonspecific mild prominence of the gallbladder wall and pericholecystic edema. Findings may represent acute cholecystitis versus fluid overload. 2. Probable right ovarian cyst which could be further evaluated with ultrasound if clinically indicated. 3. Hypoattenuation in the portal vein may be secondary to phase of contrast- enhancement. Limited evaluation on this exam. Probable nonspecific periportal edema. Pending Studies at Discharge: No Stand-Alone Forms: My [facility] Skilled Items Patient informed of condition?: Yes DNR: No Discharge Level of Care: Other Communicable Disease: No Discharge Prognosis: Stable Lines: Peripheral IV Urinary Catheter: No Medications and DC Order Prescriptions: New hydromorphone 1 mg/mL Syringe 1 mg IV Q3H PRNQty: 0 0RF hydromorphone 0.5 mg/0.5 mL Syringe 0.5 mg IV Q3H PRN (Reason: pain) Qty: 0 0RF ondansetron HCl (PF) 4 mg/2 mL Solution 4 mg IV Q6H PRNQty: 0 0RF Continued (DME) CPAP Supplies Misc See Rx Instructions .MEDSUPPLY Qty: 1 0RF Rx Instructions: CPAP supplies. G47.33 (DME) CPAP Machine Misc See Rx Instructions .MEDSUPPLY Qty: 1 0RF Rx Instructions: CPAP with 11 cm H20 pressure with ResMed medium AirFit F 30 fullface mask. G47.33 (DME) blood sugar diagnostic Strip See Rx Instructions .Route Qty: 100 5RF Rx Instructions: one touch ultra .. As directed tid prn for hyperglycemia (DME) OneTouch Ultra Test Strip See Rx Instructions .Route Qty: 300 1RF Rx Instructions: TEST THREE TIMES DAILY acetaminophen 500 mg Tablet 1,000 mg PO Q6H PRN (Reason: Pain) albuterol sulfate 90 mcg/actuation HFA aerosol inhaler 2 puff inhalation UD PRN (Reason: asthma) Rx Instructions: Pt just uses as needed, no set hours per spouse. fluticasone furoate-vilanterol [Breo Ellipta] 200-25 mcg/dose blister with device 1 inh inhalation UD PRN (Reason: asthma) Rx Instructions: Pt just uses as needed, no set hours per spouse. Discharge Orders: Discharge Order (Routine); Ordered 09/25/24 Ordered By: Molly Hightower Admission Data Admit Date/Time: 09/25/24 06:09 Attending Provider: Pina Chaidez Admit Provider: Juan J Jensen Primary Care Provider: Lukasz Morrow Other Providers: Chemo Sandoval; Aakash Goetz; Shahrzad Pandey; Mike Du; Angel Bolden; Henry Galaviz; Jaison Fierro; Berenice Pinto; Abbe Teran; Michael Bean; Asaf Jacob; Debbie Garcia; [place] Other Interventions: Discharge Summary Assessment (RN) Last Done: 09/25/24 12:12 Supervising Physician Co-Signing Physician Notes I personally examined the patient and verified goodman points of history and exam, discussed case, and agree with decision making and plan documented by Dr. Hightower. [facility] with acute cholelithiasis and evidence of cholecystitis. Patient transferred to [facility] for surgical intervention. Patient and agree with plan as patient had her gastric bypass surgery at [facility]. Resident Activity Tracking Resident Involvement: Resident Care Provided Care Provided: Adult [facility]"
[2024-09-25] MEDS: FAMOTIDINE 20MG IV PUSH 20 MG/5 ML SYR IV SCH (11:13)
[2024-09-25] MEDS: SODIUM CHLORIDE 0.9% 1,000 ML IV SCH (11:15)
[2024-09-25] MEDS: SODIUM CHLORIDE 0.9% 500 ML IV ONE (11:15)
[2024-09-25] MEDS: PLASMA-LYTE A 1,000 ML IV SCH (11:54)
[2024-09-25] MEDS: PIPERACILLIN/TAZOBACTAM 4.5 GM/100 ML BAG IV SCH (12:22)
--- NOTE | 2024-09-26 04:46 | Billing Data ---
Date of Service September 26, 2024 Coding Level of Care Code 92213 INT INP/OBS CARE
[2024-09-26] MEDS ORDERED: cefTRIAXone SODIUM 2,000 MG/50 ML BAG IV SCH (08:00)
--- NOTE | 2024-09-27 09:38 | Coding Query ---
CODING QUERY To promote full compliance with coding requirements relating to patient care, provider participation is requested in all cases of software quality engineer uncertainty. Please assist us with the question(s) below: Coding Question(s): The Discharge Summary documents, "Signs of sepsis with end organ hypoperfusion", there is no other mention of signs of Sepsis in the record, however, the ER documents, "At time of hospitalization I do not feel patient meets sepsis criteria. She does not have severe sepsis or septic shock". Please specify below, in your clinical opinion, regarding Signs of Sepsis. ( ) Possible Sepsis was diagnosed and was not present on admission. Please specify further below, the most likely cause of Sepsis: ( ) Infectious source specified. Please Specify ( ) Infectious source unspecified/unknown ( ) Other Source: Please Specify ( ) Possible Sepsis was diagnosed and was present on admission. Please specify further below, the most likely cause of Sepsis: ( ) Infectious source specified. Please Specify ( ) Infectious source unspecified/unknown ( ) Other Source: Please Specify (X ) Sepsis was not diagnosed Physician's Response(s): Thank you Mana Leon Principal Diagnosis: "that condition established after study, to be chiefly responsible for occasioning the admission of the patient to the hospital for care." Co-Existing Principal Diagnosis: "when two or more diagnoses equally meet the criteria for principal diagnosis as determined by the circumstances of admission, diagnostic work up, and/or therapy provided, and the Alphabetic Index, Tabular List, or another coding guideline does not provide sequencing direction, any one of the diagnoses may be sequenced first." "When the physician has documented what appears to be a current diagnosis in the body of the record, but has not included the diagnosis in the final diagnostic statement, the physician should be asked whether the diagnosis should be added." (Source Coding Clinic 2 QTR90. p3-4) TANYA
--- NOTE | 2024-09-27 18:56 | Electrocardiogram Report ---
Test Reason : Blood Pressure : */* mmHG Vent. Rate : 69 BPM Atrial Rate : 69 BPM P-R Int : 172 ms QRS Dur : 86 ms QT Int : 396 ms P-R-T Axes : 76 65 45 degrees QTcB Int : 424 ms Sinus rhythm with marked sinus arrhythmia Otherwise normal ECG When compared with ECG of 16-May-2021 14:53, Vent. rate has decreased by 40 bpm Nonspecific T wave abnormality no longer evident in Lateral leads Confirmed by See Eric ([id number]) on 09/27/2024 6:55:54 PM Referred By: REFERRED SELF Confirmed By: See Eric
== END 2024-09-25 12:59 | disposition short-term general hospital (02) | DRG 446 ==
LOC: SUATTDRO → ED 22:59 → SUATTDRO 09-25 06:09 → 3E 09-25 06:09